=== PATIENT | female | born 1950 | race Caucasian/White ===

== ENCOUNTER 2021-07-04 12:36 | Inpatient (IN) | payer MEDICARE ==
[~2021-07-04] VITALS: Ht 154.9 cm; Wt 99.3 kg
[2021-07-04 14:19] LABS: Influenza A, PCR NEGATIVE (NEGATIVE); Influenza B, PCR NEGATIVE (NEGATIVE); Resp Syncytial Virus, PCR NEGATIVE (NEGATIVE); SARS-Cov-2 (COVID-19) PCR, MMC NEGATIVE (NEGATIVE)
[2021-07-04 14:25] LABS: Albumin, Blood 1.6 g/dL (3.4-5.0); Albumin/Globulin Ratio 0.4 (0.8-1.8); Calcium, Blood 8.2 mg/dL (8.5-10.1); Creatinine, Blood 2.65 mg/dL (0.40-1.00); Globulin, Blood 4.4 g/dL (2.2-4.0); Potassium, Blood 5.2 mmol/L (3.5-5.5)
[2021-07-04 14:30] LABS: Hematocrit 32.4 % (33.0-51.0); Hemoglobin 9.8 g/dL (11.5-16.0); Mean Corpuscular HGB 28.9 pg (26.0-34.0); Mean Corpuscular HGB Conc 30.2 g/dL (31.5-36.5); Mean Corpuscular Volume 96 fL (80-100); Mean Platelet Volume 11.8 fL (9.1-12.4); Platelet Count 255 K/mm3 (150-400); RDW Coefficient Variation 16.4 % (11.7-14.2); RDW Standard Deviation 57.7 fL (35.1-46.3); Red Blood Cell Count 3.39 M/mm3 (3.80-5.20); White Blood Cell Count 42.74 K/mm3 (4.00-11.30)
[2021-07-04 14:37] LABS: BAND PERCENT MAN 40 % (0-8); BASOPHILS PERCENT MAN 0 % (0-2); EOSINOPHILS PERCENT MAN 0 % (0-6); LYMPHOCYTES ABSOLUTE MAN 0.42 K/mm3 (0.84-5.20); LYMPHOCYTES PERCENT MAN 1 % (21-46); METAMYELOCYTE ABSOLUTE MAN 1.28 K/mm3 (0.00-0.00); METAMYELOCYTE PERCENT MAN 3 % (0-0); MONOCYTES ABSOLUTE MAN 0.85 K/mm3 (0.16-1.47); MONOCYTES PERCENT MAN 2 % (4-13); NEUTROPHILS ABSOLUTE MAN 40.17 K/mm3 (1.96-9.15); SEG NEUTROPHILS PERCENT MAN 54 % (41-73); TOTAL CELLS COUNTED 100
[2021-07-04 17:52] LABS: Appearance, Urine Cloudy (Clear); Blood, Urine 5+ (Neg); Color, Urine Amber (P-Yellow); Glucose Qualitative, Urine Neg (Neg); Ketones, Urine 1+ (Neg); Leukocyte Esterase, Urine 3+ (Neg); Nitrite, Urine Pos (Neg); Protein, Urine 3+ (Neg); Specific Gravity, Urine 1.025 (1.003-1.022); Urobilinogen, Urine 1+ (Normal)
[2021-07-04 18:01] LABS: Bilirubin, Urine 2+ (Neg)
[2021-07-04 18:04] LABS: Amorphous Heavy (0-Heavy); Bacteria Many /hpf; Mucus Light (0-Heavy); Red Blood Cells, Urine 25-50 /hpf (0-2); Squamous Epithelial Cells Few /hpf (Few)
[2021-07-04 18:57] LABS: C DIFFICILE DNA Negative (Negative)
[2021-07-04 21:33] LABS: Campylobacter Sp Not Detected (NOT DETECT)
[2021-07-04 21:34] LABS: Adenovirus F 40/41 Not Detected (NOT DETECT); Astrovirus Not Detected (NOT DETECT); Cryptosporidium Not Detected (NOT DETECT); Cyclospora Cayetanensis Not Detected (NOT DETECT); E. Coli O157 Not Detected (NOT DETECT); Entamoeba Histolytica Not Detected (NOT DETECT); Enteroaggregative E. coli-EAEC Not Detected (NOT DETECT); Enteropathogenic E. coli-EPEC Not Detected (NOT DETECT); Enterotoxigenic E. coli-ETEC Not Detected (NOT DETECT); Giardia Lamblia Not Detected (NOT DETECT); Norovirus GI/GII Not Detected (NOT DETECT); Plesiomonas Shigelloides Not Detected (NOT DETECT); Rotavirus A Not Detected (NOT DETECT); Salmonella Sp Not Detected (NOT DETECT); Sapovirus Not Detected (NOT DETECT); Shiga Toxin-prod E. coli-STEC Not Detected (NOT DETECT); Shigella/Enteroin E. coli-EIEC Not Detected (NOT DETECT); Vibrio Cholerae Not Detected (NOT DETECT); Vibrio Sp Not Detected (NOT DETECT); Yersinia Enterocolitica Not Detected (NOT DETECT)
[2021-07-04] MEDS ORDERED: GLIP5 PO (21:46)
[2021-07-04] MEDS ORDERED: LOSA50 PO (21:46)
[2021-07-04] MEDS ORDERED: HYDCHL25 PO (21:47)
[2021-07-04] MEDS ORDERED: ATOR40TA PO (21:48)
[2021-07-04] MEDS ORDERED: METO50ER PO (21:49)
[2021-07-04] MEDS ORDERED: PRED1 PO (21:51)
[2021-07-04] MEDS ORDERED: MYCOPHENOLATE PO (21:56)
[2021-07-04] MEDS ORDERED: SITA25T2 PO (21:56)
[2021-07-04] MEDS ORDERED: MYCOPHENOLATE500 M2 PO (21:57)
[2021-07-04] MEDS ORDERED: TACROLIMUS PO (21:59)
--- NOTE | 2021-07-05 02:24 | NUR ---
RECIEVED REPORT FROM SABINE ORTEGA RN, AT 2132; PATIENT ARRIVED TO ROOM 312 @ 2200 BY STRETCHER. PATIENT TRANSFERED SELF WITH ONE PERSON ASSIST TO HOSPITAL BED. VITALS STABLE. ADMIT ASSESSMENT, H&P AND MED REC COMPLETED WITH ASSISTANCE OF PATIENT. PATIENT WITH MINIMAL APPETITE. JUST READY FOR SLEEP.
--- NOTE | 2021-07-05 04:50 | NUR ---
PATIENT HAD AND UNEVENTFUL NIGHT. ONLY C/O PAIN WAS THE H/A SHE WAS EXPERIENCING WHICH SEEMS TO HAVE RESOLVED AFTER RECIEVING HER SECOND DOSE OF APAP TONIGHT. SHE CONTINUES TO FEEL WEAK BUT IS SLOWLY STARTING TO FEEL BETTER. SHE HAS ONLY HAD 2 BMs SINCE ADMITTING TO THE FLOOR, WHICH APPARENTLY IS A GOOD IMPROVEMENT FROM THE FREQUENCY DOWN IN THE ER. THE PATIENT IS PLEASANT AND COOPERATIVE WITH STAFF, SHE CALLS APPROPRIATELY FOR STAFF ASSIST NEEDED. CALL LIGHT WITHIN REACH.
[2021-07-05 05:43] LABS: Hematocrit 27.7 % (33.0-51.0); Hemoglobin 8.6 g/dL (11.5-16.0); Mean Corpuscular HGB 28.7 pg (26.0-34.0); Mean Corpuscular Volume 92 fL (80-100); Mean Platelet Volume 11.5 fL (9.1-12.4); Platelet Count 240 K/mm3 (150-400); RDW Coefficient Variation 16.4 % (11.7-14.2); RDW Standard Deviation 55.2 fL (35.1-46.3); White Blood Cell Count 36.68 K/mm3 (4.00-11.30)
[2021-07-05 06:30] LABS: BAND PERCENT MAN 28 % (0-8); BASOPHILS PERCENT MAN 0 % (0-2); EOSINOPHILS PERCENT MAN 0 % (0-6); MONOCYTES ABSOLUTE MAN 0.73 K/mm3 (0.16-1.47); MONOCYTES PERCENT MAN 2 % (4-13); NEUTROPHILS ABSOLUTE MAN 35.94 K/mm3 (1.96-9.15); SEG NEUTROPHILS PERCENT MAN 70 % (41-73); TOTAL CELLS COUNTED 100
[2021-07-05 06:46] LABS: Albumin, Blood 2.1 g/dL (3.4-5.0); Anion Gap 15 mmol/L (6-16); Blood Urea Nitrogen 65 mg/dL (8-24); Bun/Creatinine Ratio 22.6 (12.0-20.0); CO2, Blood 17 mmol/L (21-32); Calcium, Blood 8.6 mg/dL (8.5-10.1); Chloride, Blood 102 mmol/L (98-108); Creatinine, Blood 2.87 mg/dL (0.40-1.00); Glomerular Filtration Rate 16 (60-); Glucose, Blood 178 mg/dL (70-99); Phosphorus, Blood 5.6 mg/dL (2.5-4.9); Potassium, Blood 3.7 mmol/L (3.5-5.5); Sodium, Blood 134 mmol/L (136-145)
--- NOTE | 2021-07-05 17:22 | NUR ---
SUMMARY PT SITTING UP IN BED VISITING WITH FAMILY, PT HAS BEEN PLEASANT AND COOPERATIVE WITH CARE, UP WITH STANDBY ASSIST, PT STILL WITH SMALL AMOUNTS OF DIARRHEA, SMALL AMOUNTS OF URINE ALSO, BLADDER SCAN NOT SHOWING URINE RETENTION, PT DENIES ANY PAIN OR SOB, VSS, WILL CONT TO MONITOR
[2021-07-06 04:58] LABS: Hematocrit 27.8 % (33.0-51.0); Hemoglobin 8.8 g/dL (11.5-16.0); Mean Corpuscular HGB 28.6 pg (26.0-34.0); Mean Corpuscular HGB Conc 31.7 g/dL (31.5-36.5); Mean Corpuscular Volume 90 fL (80-100); Mean Platelet Volume 11.5 fL (9.1-12.4); Platelet Count 209 K/mm3 (150-400); RDW Coefficient Variation 16.1 % (11.7-14.2); RDW Standard Deviation 53.4 fL (35.1-46.3); Red Blood Cell Count 3.08 M/mm3 (3.80-5.20)
[2021-07-06 05:46] LABS: BAND PERCENT MAN 16 % (0-8); BASOPHILS PERCENT MAN 0 % (0-2); EOSINOPHILS PERCENT MAN 0 % (0-6); LYMPHOCYTES PERCENT MAN 1 % (21-46); MONOCYTES PERCENT MAN 2 % (4-13); NEUTROPHILS ABSOLUTE MAN 19.49 K/mm3 (1.96-9.15); SEG NEUTROPHILS PERCENT MAN 81 % (41-73); TOTAL CELLS COUNTED 100
[2021-07-06 06:12] LABS: Albumin, Blood 1.8 g/dL (3.4-5.0); Albumin/Globulin Ratio 0.5 (0.8-1.8); Bilirubin, Total 1.1 mg/dL (0.1-1.0); Bun/Creatinine Ratio 29.1 (12.0-20.0); Calcium, Blood 8.4 mg/dL (8.5-10.1); Creatinine, Blood 2.65 mg/dL (0.40-1.00); Globulin, Blood 3.5 g/dL (2.2-4.0); Potassium, Blood 3.2 mmol/L (3.5-5.5); Total Protein, Blood 5.3 g/dL (6.4-8.2)
--- NOTE | 2021-07-06 06:14 | NUR ---
SHIFT SUMMARY JAS: JAS WAS ADMINISTERED HER MEDS AT 2100, FELT A LITTLE BIT ANXIOUS AROUND 1AM, SHE SAID THAT SHE FELT HOT AND COULD NOT BREATHE BUT HER VITALS WERE GOOD AND SHE WAS NSR PER TELE REPORT. AT 4AM SHE WAS HYPOTENSIVE, DR. WEINER WAS ALERTED AND A 250 NS BOLUS WAS ADMINISTERED HER SYSTOLIC BP WENT UP FROM 74 TO 95. CONTINUE TO MONITOR
--- NOTE | 2021-07-06 17:43 | NUR ---
SUMMARY PT SITTING UP AT THE EDGE OF THE BED EATING DINNER, PT HAS BEEN PLEASANT AND COOPERATIVE WITH CARE, UP WITH MIN ASSIST, PT VOIDS SMALL AMOUNT, BLADDER SCAN SHOWS LITTLE TO NO RESIDUALS, FAMILY HAS BEEN IN TO VISIT, VSS, NO COMPLAINTS, WILL CONT TO MONITOR
[2021-07-07 05:19] LABS: Bun/Creatinine Ratio 38.8 (12.0-20.0); Calcium, Blood 8.9 mg/dL (8.5-10.1); Creatinine, Blood 2.01 mg/dL (0.40-1.00); Magnesium, Blood 2.2 mg/dL (1.6-2.4)
--- NOTE | 2021-07-07 05:24 | NUR ---
SHIFT SUMMARY JAS: JAS REMAINED STABLE ALL NIGHT. HER LABS ARE PENDING. SHE WAS BLADDER SCAN ONE JOUR AFTER VOIDING 600ML. HER BLADDER WAS EMPTY. SHE IS PLEASANT COOPERATIVE. SLEPT GOOD
[2021-07-07 05:28] LABS: Hematocrit 26.9 % (33.0-51.0); Hemoglobin 8.3 g/dL (11.5-16.0); Mean Corpuscular HGB 28.1 pg (26.0-34.0); Mean Corpuscular HGB Conc 30.9 g/dL (31.5-36.5); Mean Corpuscular Volume 91 fL (80-100); Mean Platelet Volume 11.6 fL (9.1-12.4); Platelet Count 161 K/mm3 (150-400); RDW Coefficient Variation 16.5 % (11.7-14.2); RDW Standard Deviation 55.3 fL (35.1-46.3); Red Blood Cell Count 2.95 M/mm3 (3.80-5.20); White Blood Cell Count 17.68 K/mm3 (4.00-11.30)
[2021-07-07 06:27] LABS: BAND PERCENT MAN 8 % (0-8); BASOPHILS PERCENT MAN 0 % (0-2); EOSINOPHILS PERCENT MAN 0 % (0-6); LYMPHOCYTES ABSOLUTE MAN 0.17 K/mm3 (0.84-5.20); LYMPHOCYTES PERCENT MAN 1 % (21-46); MONOCYTES ABSOLUTE MAN 0.88 K/mm3 (0.16-1.47); MONOCYTES PERCENT MAN 5 % (4-13); NEUTROPHILS ABSOLUTE MAN 16.61 K/mm3 (1.96-9.15); SEG NEUTROPHILS PERCENT MAN 86 % (41-73); TOTAL CELLS COUNTED 100
--- NOTE | 2021-07-07 17:10 | NUR ---
SHIFT SUMMARY PATIENT IS A/O X4, PLEASANT AND COOPERATIVE WITH CARE. PATIENT IS 1 PERSON SBA TO THE BSC/RECLINER. ON RA. LACTATED RINGER'S RUNNING AT 100MLS/HR. ABX GIVEN TWICE THIS SHIFT. PATIENT HAS NOT HAD MUCH OF AN APPETITE THIS SHIFT. SPECIAL TRAY ORDERED FOR THEM THIS EVENING. COVERAGE TWICE THIS SHIFT PER SLIDING SCALE INSULIN. ON TELE. CALL LIGHT WITHIN REACH. WILL CONTINUE TO CARE FOR THE PATIENT UNTIL SHIFT REPORT IS GIVEN TO ONCOMING NURSE.
--- NOTE | 2021-07-08 04:49 | NUR ---
SHIFT SUMMARY JAS: JAS CALLED FOR HELP AROUND 2AM BECAUSE SHE FELT SHE COULD NOT BREATHE. UPON ASSESSMENT HER SPO2 WAS IN THE LOW 90'S. 2L NC WERE ADMINISTERED AND IT MADE NO DIFFERENCE. HER LUNGS SOUNDED WEEZY AND CRACKLES COULD BE HEARD AT THE BASES. DR. HIGGINBOTHAM WAS ALERTED. CHEST X-RAY, LASIX AND CPAP WERE ORDERED STAT. SPO2 WERE IN THE UPPER 90'S WITH THE CPAP. WILL CONTINUE TO MONITOR
[2021-07-08 06:21] LABS: Hematocrit 28.5 % (33.0-51.0); Hemoglobin 8.6 g/dL (11.5-16.0); Mean Corpuscular HGB 28.3 pg (26.0-34.0); Mean Corpuscular HGB Conc 30.2 g/dL (31.5-36.5); Mean Corpuscular Volume 94 fL (80-100); Mean Platelet Volume 12.1 fL (9.1-12.4); NRBC ABSOLUTE 0.12 K/mm3 (0.00-0.02); NRBC Auto 1.2 /100 WBC (0.0-0.2); Platelet Count 122 K/mm3 (150-400); RDW Coefficient Variation 16.6 % (11.7-14.2); Red Blood Cell Count 3.04 M/mm3 (3.80-5.20); White Blood Cell Count 10.26 K/mm3 (4.00-11.30)
[2021-07-08 06:46] LABS: Albumin, Blood 1.6 g/dL (3.4-5.0); Anion Gap 15 mmol/L (6-16); Blood Urea Nitrogen 78 mg/dL (8-24); CO2, Blood 18 mmol/L (21-32); Calcium, Blood 8.6 mg/dL (8.5-10.1); Chloride, Blood 104 mmol/L (98-108); Creatinine, Blood 1.66 mg/dL (0.40-1.00); Glomerular Filtration Rate 30 (60-); Glucose, Blood 165 mg/dL (70-99); Magnesium, Blood 1.8 mg/dL (1.6-2.4); Phosphorus, Blood 2.7 mg/dL (2.5-4.9); Sodium, Blood 137 mmol/L (136-145)
[2021-07-08 06:48] LABS: BAND PERCENT MAN 3 % (0-8); BASOPHILS PERCENT MAN 0 % (0-2); EOSINOPHILS PERCENT MAN 0 % (0-6); LYMPHOCYTES PERCENT MAN 2 % (21-46); MONOCYTES PERCENT MAN 1 % (4-13); NEUTROPHILS ABSOLUTE MAN 9.95 K/mm3 (1.96-9.15); SEG NEUTROPHILS PERCENT MAN 94 % (41-73); TOTAL CELLS COUNTED 100
[2021-07-08 15:50] LABS: Albumin, Blood 1.6 g/dL (3.4-5.0); Anion Gap 12 mmol/L (6-16); Blood Urea Nitrogen 81 mg/dL (8-24); Bun/Creatinine Ratio 42.4 (12.0-20.0); CO2, Blood 18 mmol/L (21-32); Calcium, Blood 8.5 mg/dL (8.5-10.1); Chloride, Blood 104 mmol/L (98-108); Creatinine, Blood 1.91 mg/dL (0.40-1.00); Glomerular Filtration Rate 26 (60-); Glucose, Blood 198 mg/dL (70-99); Potassium, Blood 4.4 mmol/L (3.5-5.5); Sodium, Blood 134 mmol/L (136-145)
--- NOTE | 2021-07-08 18:05 | NUR ---
SHIFT SUMMARY PT AxOx4, BUT REPORTS FEELING WORSE TODAY WITH SOB. RESP THERAPY IN FOR BREATHING TX. PT HAD REPEAT CXR, DIURETICS, ABX, AND ECHO PER ORDERS. PT HAD SOFT BP T/O THIS SHIFT. BP MEDS HELD THIS AM. FAMILY CALLED AND IN FOR VISIT- GIVEN UPDATES. PER LIVESTOCK AGENT, NRS WITH PVC IN 100'S. PT ON 5L O2 VIA NC WITH SAT'S IN MID-HIGH 90'S. 1 ASSIST TO BSC FOR GENERAL WEAKNESS. PT TALKING MORE THIS EVENING AND CURRENTLY SITTING UP IN BED EATING DINNER. CALL LIGHT IN REACH. DENIES ANY NEEDS AT THIS TIME.
[2021-07-09 02:20] LABS: Hematocrit 22.7 % (33.0-51.0); Hemoglobin 7.1 g/dL (11.5-16.0); Mean Corpuscular HGB 28.3 pg (26.0-34.0); Mean Corpuscular HGB Conc 31.3 g/dL (31.5-36.5); Mean Corpuscular Volume 90 fL (80-100); Mean Platelet Volume 12.7 fL (9.1-12.4); NRBC ABSOLUTE 0.03 K/mm3 (0.00-0.02); NRBC Auto 0.1 /100 WBC (0.0-0.2); Platelet Count 122 K/mm3 (150-400); RDW Coefficient Variation 16.7 % (11.7-14.2); RDW Standard Deviation 54.8 fL (35.1-46.3); Red Blood Cell Count 2.51 M/mm3 (3.80-5.20); White Blood Cell Count 26.56 K/mm3 (4.00-11.30)
[2021-07-09 02:43] LABS: Albumin, Blood 1.5 g/dL (3.4-5.0); Anion Gap 13 mmol/L (6-16); Blood Urea Nitrogen 87 mg/dL (8-24); Bun/Creatinine Ratio 45.3 (12.0-20.0); CO2, Blood 20 mmol/L (21-32); Calcium, Blood 8.7 mg/dL (8.5-10.1); Chloride, Blood 103 mmol/L (98-108); Creatinine, Blood 1.92 mg/dL (0.40-1.00); Glomerular Filtration Rate 26 (60-); Glucose, Blood 234 mg/dL (70-99); Phosphorus, Blood 3.6 mg/dL (2.5-4.9); Sodium, Blood 136 mmol/L (136-145)
[2021-07-09 03:06] LABS: BAND PERCENT MAN 12 % (0-8); BASOPHILS PERCENT MAN 0 % (0-2); EOSINOPHILS PERCENT MAN 0 % (0-6); LYMPHOCYTES ABSOLUTE MAN 0.79 K/mm3 (0.84-5.20); LYMPHOCYTES PERCENT MAN 3 % (21-46); MONOCYTES ABSOLUTE MAN 0.79 K/mm3 (0.16-1.47); MONOCYTES PERCENT MAN 3 % (4-13); NEUTROPHILS ABSOLUTE MAN 24.96 K/mm3 (1.96-9.15); SEG NEUTROPHILS PERCENT MAN 82 % (41-73); TOTAL CELLS COUNTED 100
--- NOTE | 2021-07-09 06:19 | NUR ---
SHIFT SUMMARY AOX4-SELF, DATE, SITUATION, PLACE. ANSWERS QUESTIONS APPROPRIATE. SLOW TO RESPOND. FOLLOWS DIRECTIONS. VSS. TELE NSR c PVC @83. DENIES PAIN, SOB OR N/V. SPO2 @100% T/O NIGHT, ABLE TO TITRATE O2 DOWN TO 2L. LS DIM c CRACKLES IN BASES. GETS DYSPNIC c ACTIVITY. URINE IS WIN c FOUL ODOR, PT DENIES DISCOMFORT c URINATION. CALL LIGHT & BED ALARM IN PLACE. WCTM.
[2021-07-09 12:43] LABS: Albumin, Blood 1.6 g/dL (3.4-5.0); Anion Gap 13 mmol/L (6-16); Blood Urea Nitrogen 91 mg/dL (8-24); Bun/Creatinine Ratio 48.1 (12.0-20.0); CO2, Blood 21 mmol/L (21-32); Calcium, Blood 9.2 mg/dL (8.5-10.1); Chloride, Blood 102 mmol/L (98-108); Creatinine, Blood 1.89 mg/dL (0.40-1.00); Glomerular Filtration Rate 26 (60-); Glucose, Blood 285 mg/dL (70-99); Phosphorus, Blood 3.2 mg/dL (2.5-4.9); Potassium, Blood 3.7 mmol/L (3.5-5.5); Sodium, Blood 136 mmol/L (136-145)
[2021-07-09] MEDS ORDERED: PLAVIX75 MG PO (16:09)
[2021-07-09 17:12] LABS: BASOPHILS ABSOLUTE AUTO 0.07 K/mm3 (0.00-0.23); BASOPHILS PERCENT AUTO 0 % (0-2); EOSINOPHILS ABSOLUTE AUTO 0.08 K/mm3 (0.00-0.68); EOSINOPHILS PERCENT AUTO 0 % (0-6); Hematocrit 24.6 % (33.0-51.0); Hemoglobin 7.9 g/dL (11.5-16.0); IMMATURE GRAN ABSOLUTE AUTO 0.56 K/mm3 (0.00-0.10); IMMATURE GRAN PERCENT AUTO 3 % (0-1); LYMPHOCYTES PERCENT AUTO 3 % (21-46); MONOCYTES ABSOLUTE AUTO 0.75 K/mm3 (0.16-1.47); MONOCYTES PERCENT AUTO 3 % (4-13); Mean Corpuscular HGB 28.7 pg (26.0-34.0); Mean Corpuscular HGB Conc 32.1 g/dL (31.5-36.5); Mean Corpuscular Volume 90 fL (80-100); Mean Platelet Volume 12.6 fL (9.1-12.4); NEUTROPHILS ABSOLUTE AUTO 20.63 K/mm3 (1.96-9.15); NEUTROPHILS PERCENT AUTO 91 % (41-73); NRBC ABSOLUTE 0.02 K/mm3 (0.00-0.02); NRBC Auto 0.1 /100 WBC (0.0-0.2); Platelet Count 144 K/mm3 (150-400); RDW Coefficient Variation 16.9 % (11.7-14.2); RDW Standard Deviation 55.3 fL (35.1-46.3); Red Blood Cell Count 2.75 M/mm3 (3.80-5.20); White Blood Cell Count 22.69 K/mm3 (4.00-11.30)
--- NOTE | 2021-07-09 18:37 | NUR ---
SHIFT SUMMARY PATIENT IS ALERT AND ORIENTED X4, PLEASANT AND COOPERATIVE WITH CARE. PATIENT RECEIVED A ONE TIME DOSE OF INSULIN VIA MEDIUM SLIDING SCALE FOR CORRECTION OF 367. DOC NOTIFIED. PATIENT HAS LITTLE APPETITE. PATIENT DID HAVE SOME BROTH AND ENSURE THIS SHIFT. PATIENT IS ON RA SATTING ABOVE 90% PATIENT DID RECEIVE BREATHING TREATMENTS THIS SHIFT. CT DONE THIS SHIFT. PATIENT IS CURRENTLY IN BED. VSS. BED IN LOWEST POSITION. CALL LIGHT WITHIN REACH.
--- NOTE | 2021-07-10 03:14 | NUR ---
SHIFT SUMMARY A&0X3-4, RA, LUNGS WITH BILATERAL LOWER LOBE CRACKELS AND BILATERAL EXP WHEEZES. NO DYSPNEA NOTED. PATIENT ABLE TO TRANSFER TO BSC INDEPENDENTLY (SBA FOR SAFETY). BLADDER SCAN REAVEALED NO PVR. URINIARY FREQUENCY DENIES PAIN/BURNING WITH URINATION. COOCYX WOUND COVERED WITH MEPILEX CDI. POSITIVE BLOOD CULTURES GRAM NEGATIVE BACILLI, NOTIFIED. NO NEW ORDERS.
[2021-07-10 05:31] LABS: BASOPHILS ABSOLUTE AUTO 0.04 K/mm3 (0.00-0.23); BASOPHILS PERCENT AUTO 0 % (0-2); EOSINOPHILS ABSOLUTE AUTO 0.21 K/mm3 (0.00-0.68); EOSINOPHILS PERCENT AUTO 1 % (0-6); Hematocrit 23.8 % (33.0-51.0); Hemoglobin 7.5 g/dL (11.5-16.0); IMMATURE GRAN ABSOLUTE AUTO 0.46 K/mm3 (0.00-0.10); IMMATURE GRAN PERCENT AUTO 2 % (0-1); LYMPHOCYTES ABSOLUTE AUTO 0.88 K/mm3 (0.84-5.20); LYMPHOCYTES PERCENT AUTO 4 % (21-46); MONOCYTES PERCENT AUTO 5 % (4-13); Mean Corpuscular HGB 28.1 pg (26.0-34.0); Mean Corpuscular HGB Conc 31.5 g/dL (31.5-36.5); Mean Corpuscular Volume 89 fL (80-100); Mean Platelet Volume 12.6 fL (9.1-12.4); NEUTROPHILS ABSOLUTE AUTO 19.03 K/mm3 (1.96-9.15); NEUTROPHILS PERCENT AUTO 88 % (41-73); Platelet Count 150 K/mm3 (150-400); RDW Coefficient Variation 16.9 % (11.7-14.2); RDW Standard Deviation 54.7 fL (35.1-46.3); Red Blood Cell Count 2.67 M/mm3 (3.80-5.20); White Blood Cell Count 21.62 K/mm3 (4.00-11.30)
[2021-07-10 06:46] LABS: Albumin, Blood 1.6 g/dL (3.4-5.0); Anion Gap 12 mmol/L (6-16); Blood Urea Nitrogen 91 mg/dL (8-24); Bun/Creatinine Ratio 48.1 (12.0-20.0); CO2, Blood 23 mmol/L (21-32); Calcium, Blood 9.1 mg/dL (8.5-10.1); Chloride, Blood 101 mmol/L (98-108); Creatinine, Blood 1.89 mg/dL (0.40-1.00); Glomerular Filtration Rate 26 (60-); Glucose, Blood 337 mg/dL (70-99); Magnesium, Blood 2.1 mg/dL (1.6-2.4); Phosphorus, Blood 3.4 mg/dL (2.5-4.9); Sodium, Blood 136 mmol/L (136-145)
--- NOTE | 2021-07-10 18:42 | NUR ---
SHIFT SUMMARY PATIENT IS ALERT AND ORIENTED, PLEASANT AND COOPERATIVE WITH CARE. PATIENT HAS BEEN TRYING TO EAT MORE THIS SHIFT. THE PATIENT SPOKE WITH THE CIRCUS AGENT TODAY. COVERAGE PER SLIDING SCALE GIVEN WITH MEALS THIS SHIFT. PATIENT'S SON WOULD LIKE TO BE UPDATED WITH CARE TOMORROW 07/11/21. PATIENT HAS PRN TESSALON ORDERED. COUGH HAS IMPROVED. VSS. PATIENT IS UP IN RECLINER. WILL CONTINUE TO CARE FOR THE PATIENT UNTIL SHIFT REPORT IS GIVEN TO ONCOMING NURSE.
--- NOTE | 2021-07-11 06:39 | NUR ---
SHIFT SUMMARY: A&OX3, SAT > 92% ON RA, EXP WHEEZES AND SLIGHT COARSENESS TO BASES BILATERALLY. WET NONPRODCUTIVE COUGH. ENCOURAGED COUGH AND DEEP BREATHE. TELE =NSR. AMBULATES FROM BED, TO CHAIR, TO BSC INDEPENDENTLY SBA FOR SAFETY. PATIENT SEEMS WEAKER THAN PREVIOUS SHIFT. +1 EDEMA TO BLE. PATIENT DID NOT SLEEP WELL MOVED FROM BED TO CHAIR EVERY FEW HOURS.
[2021-07-11 09:18] LABS: BASOPHILS ABSOLUTE AUTO 0.03 K/mm3 (0.00-0.23); BASOPHILS PERCENT AUTO 0 % (0-2); EOSINOPHILS ABSOLUTE AUTO 0.18 K/mm3 (0.00-0.68); EOSINOPHILS PERCENT AUTO 1 % (0-6); Hematocrit 23.7 % (33.0-51.0); Hemoglobin 7.3 g/dL (11.5-16.0); IMMATURE GRAN ABSOLUTE AUTO 0.27 K/mm3 (0.00-0.10); IMMATURE GRAN PERCENT AUTO 2 % (0-1); LYMPHOCYTES ABSOLUTE AUTO 1.01 K/mm3 (0.84-5.20); LYMPHOCYTES PERCENT AUTO 6 % (21-46); MONOCYTES ABSOLUTE AUTO 0.97 K/mm3 (0.16-1.47); MONOCYTES PERCENT AUTO 6 % (4-13); Mean Corpuscular HGB 27.9 pg (26.0-34.0); Mean Corpuscular HGB Conc 30.8 g/dL (31.5-36.5); Mean Corpuscular Volume 91 fL (80-100); Mean Platelet Volume 12.3 fL (9.1-12.4); NEUTROPHILS ABSOLUTE AUTO 14.51 K/mm3 (1.96-9.15); NEUTROPHILS PERCENT AUTO 85 % (41-73); NRBC ABSOLUTE 0.02 K/mm3 (0.00-0.02); NRBC Auto 0.1 /100 WBC (0.0-0.2); Platelet Count 177 K/mm3 (150-400); RDW Coefficient Variation 17.1 % (11.7-14.2); RDW Standard Deviation 55.4 fL (35.1-46.3); Red Blood Cell Count 2.62 M/mm3 (3.80-5.20); White Blood Cell Count 16.97 K/mm3 (4.00-11.30)
[2021-07-11 09:43] LABS: Albumin, Blood 1.7 g/dL (3.4-5.0); Anion Gap 10 mmol/L (6-16); Blood Urea Nitrogen 82 mg/dL (8-24); Bun/Creatinine Ratio 44.8 (12.0-20.0); CO2, Blood 24 mmol/L (21-32); Chloride, Blood 103 mmol/L (98-108); Creatinine, Blood 1.83 mg/dL (0.40-1.00); Glomerular Filtration Rate 27 (60-); Glucose, Blood 274 mg/dL (70-99); Phosphorus, Blood 3.4 mg/dL (2.5-4.9); Potassium, Blood 4.4 mmol/L (3.5-5.5); Sodium, Blood 137 mmol/L (136-145)
--- NOTE | 2021-07-11 18:37 | NUR ---
PT AAOX4 ABLE TO MAKE NEEDS KNOWN. COMPLIANT WITH MEDICATION REGIMEN. NO DISTRESS NOTED, NO CPMPLAINTS VOICED. CONTINUES ON IV ABT, NO ADVERSE REACTION NOTED. BED IN LOWEST POSITION. CALL LIGHT IN REACH
--- NOTE | 2021-07-12 04:43 | NUR ---
SHIFT SUMMARY: A&OX4. TELE = NSR. RA, RLL CRACKELS, FRANCO, WET COUGH. INCREASING EDEMA BLE AND PEDAL. PATIENT COMPLAINING OF INCREASED PRESSURE AND PAIN TO FEET. DIFFICULTY AMBULATING TONIGHT. WOUND TO CCOCYX DRESISNG CDI.
[2021-07-12 05:10] LABS: BASOPHILS ABSOLUTE AUTO 0.04 K/mm3 (0.00-0.23); BASOPHILS PERCENT AUTO 0 % (0-2); EOSINOPHILS ABSOLUTE AUTO 0.12 K/mm3 (0.00-0.68); EOSINOPHILS PERCENT AUTO 1 % (0-6); Hematocrit 28.1 % (33.0-51.0); Hemoglobin 8.5 g/dL (11.5-16.0); IMMATURE GRAN ABSOLUTE AUTO 0.21 K/mm3 (0.00-0.10); IMMATURE GRAN PERCENT AUTO 2 % (0-1); LYMPHOCYTES ABSOLUTE AUTO 0.81 K/mm3 (0.84-5.20); LYMPHOCYTES PERCENT AUTO 6 % (21-46); MONOCYTES ABSOLUTE AUTO 0.21 K/mm3 (0.16-1.47); MONOCYTES PERCENT AUTO 2 % (4-13); Mean Corpuscular HGB 28.2 pg (26.0-34.0); Mean Corpuscular HGB Conc 30.2 g/dL (31.5-36.5); Mean Corpuscular Volume 93 fL (80-100); Mean Platelet Volume 12.6 fL (9.1-12.4); NEUTROPHILS ABSOLUTE AUTO 12.02 K/mm3 (1.96-9.15); NEUTROPHILS PERCENT AUTO 90 % (41-73); NRBC ABSOLUTE 0.05 K/mm3 (0.00-0.02); NRBC Auto 0.4 /100 WBC (0.0-0.2); Platelet Count 224 K/mm3 (150-400); RDW Coefficient Variation 17.3 % (11.7-14.2); RDW Standard Deviation 57.8 fL (35.1-46.3); Red Blood Cell Count 3.01 M/mm3 (3.80-5.20); White Blood Cell Count 13.41 K/mm3 (4.00-11.30)
[2021-07-12 05:44] LABS: BAND PERCENT MAN 4 % (0-8); BASOPHILS PERCENT MAN 0 % (0-2); EOSINOPHILS PERCENT MAN 0 % (0-6); LYMPHOCYTES PERCENT MAN 6 % (21-46); MONOCYTES ABSOLUTE MAN 0.13 K/mm3 (0.16-1.47); MONOCYTES PERCENT MAN 1 % (4-13); NEUTROPHILS ABSOLUTE MAN 12.47 K/mm3 (1.96-9.15); SEG NEUTROPHILS PERCENT MAN 89 % (41-73); TOTAL CELLS COUNTED 100
[2021-07-12 06:43] LABS: Anion Gap 14 mmol/L (6-16); Blood Urea Nitrogen 76 mg/dL (8-24); Bun/Creatinine Ratio 46.9 (12.0-20.0); CO2, Blood 20 mmol/L (21-32); Calcium, Blood 9.4 mg/dL (8.5-10.1); Chloride, Blood 102 mmol/L (98-108); Creatinine, Blood 1.62 mg/dL (0.40-1.00); Glomerular Filtration Rate 31 (60-); Glucose, Blood 297 mg/dL (70-99); Phosphorus, Blood 4.6 mg/dL (2.5-4.9); Potassium, Blood 5.2 mmol/L (3.5-5.5); Sodium, Blood 136 mmol/L (136-145)
[2021-07-12 07:10] LABS: MYCOPHENOLIC ACID 0.8 ug/mL (1.0-3.5)
[2021-07-12 11:11] LABS: MYCOPHENOLIC ACID 2.3 ug/mL (1.0-3.5)
--- NOTE | 2021-07-12 18:52 | NUR ---
PT AAOX3 ABLE TO MAKE NEEDS KNOWN. NO DISTRESS NOTED, NO COMPLAINTS VOICED. ENCOURAGE PT TO KEEP BLE ELEVATED TOLERATED. COMPLIANT TO MEDICATION REGIMEN. BEDIN LOWEST POSITION. CALL LIGHT IN REACH.
[2021-07-13 05:13] LABS: Hematocrit 25.2 % (33.0-51.0); Hemoglobin 7.7 g/dL (11.5-16.0); Mean Corpuscular HGB 28.3 pg (26.0-34.0); Mean Corpuscular HGB Conc 30.6 g/dL (31.5-36.5); Mean Corpuscular Volume 93 fL (80-100); Mean Platelet Volume 12.4 fL (9.1-12.4); Platelet Count 277 K/mm3 (150-400); RDW Standard Deviation 56.5 fL (35.1-46.3); Red Blood Cell Count 2.72 M/mm3 (3.80-5.20); White Blood Cell Count 21.39 K/mm3 (4.00-11.30)
--- NOTE | 2021-07-13 05:47 | NUR ---
SHIFT SUMMARY: PATIENT IS A&O X3, CONFUSED TO P[LACE UPON AWAKENING. INC. OF BOWEL X2. GUZMAN IS REMOVED THIS AM PER MD ORDER. URINE IS A DARK WIN. CIWA SCORES WERE 0,0,4 (FOR ANXIETY). LIBRIUM WAS GIVEN X1 WITH GOOD EFFECT.
[2021-07-13 06:38] LABS: Albumin, Blood 1.9 g/dL (3.4-5.0); Anion Gap 12 mmol/L (6-16); Blood Urea Nitrogen 78 mg/dL (8-24); Bun/Creatinine Ratio 43.8 (12.0-20.0); CO2, Blood 21 mmol/L (21-32); Calcium, Blood 9.1 mg/dL (8.5-10.1); Chloride, Blood 104 mmol/L (98-108); Creatinine, Blood 1.78 mg/dL (0.40-1.00); Glomerular Filtration Rate 28 (60-); Glucose, Blood 217 mg/dL (70-99); Phosphorus, Blood 4.5 mg/dL (2.5-4.9); Potassium, Blood 4.8 mmol/L (3.5-5.5); Sodium, Blood 137 mmol/L (136-145)
--- NOTE | 2021-07-13 06:46 | NUR ---
SHIFT SUMMARY:PATIENT DOMITILA&OX4, NO REPORTS OF PAIN, VSS. PATIENT WAS SHIVERING AT HS, NO TEMP. OBSERVED AT THAT TIME BUT DID SPIKE A LOW GRADE TEMP. AT 0430, NOT SHIVERING WITH THE LOW GRADE TEMP. PATIENT REPORTS THIS HAPPENING A COUPLE OF TIMES DURING THIS ILLNESS. PATIENT DID NOT SLEEP WELL. COULD NOT GET COMFORTABLE IN THE BED OR THE CHAIR.
--- NOTE | 2021-07-13 18:00 | NUR ---
PT AAOX3 , ABLE TO MAKE NEEDS KNOWN. PT C/O IRRATION TO TONGUE AND THROAT, NSTATIN ORDERED FIRST DOSE GIVEN. STARTED ON PUREE DIET, PT STATED" THIS IS A LITTLE BETTER FOR ME." CONTINUES ON IV ABT, NO ADVERSE REACTION NOTED. ASSISTED WITH ADL'S NEEDED. BED IN LOWEST POSITION. CALL LIGHT IN REACH.
--- NOTE | 2021-07-14 02:40 | NUR ---
CARDIAC: PATIENT DEVELOPED CRACKLES AND REQUIRED [address] WEN WAS NOTIFIED AND ORDER FOR LASIX 40 ML X1 WAS OBTAINED. PATIENT VOIDED ONLY 100ML, BLADDER SCAN SHOWS 75 ML IN BLADDER. [employer] CALLED TO REPORT A SHRP DROP IN HEART RATE FROM 80'S DOWN TO 40 MULTIPLE TIMES WITHOUT SUSTAINING[address] WEN WAS NOTIFIED OF ABOVE. ORDERS OBTAINED FOR ANOTHER 40 ML OF IV LASIX
[2021-07-14 05:05] LABS: Hematocrit 23.5 % (33.0-51.0); Hemoglobin 7.1 g/dL (11.5-16.0); Mean Corpuscular HGB Conc 30.2 g/dL (31.5-36.5); Mean Corpuscular Volume 93 fL (80-100); Mean Platelet Volume 11.9 fL (9.1-12.4); Platelet Count 307 K/mm3 (150-400); RDW Coefficient Variation 18.4 % (11.7-14.2); RDW Standard Deviation 57.3 fL (35.1-46.3); Red Blood Cell Count 2.54 M/mm3 (3.80-5.20); White Blood Cell Count 10.14 K/mm3 (4.00-11.30)
--- NOTE | 2021-07-14 05:38 | NUR ---
SHIFT SUMMARY: PATIENT REFUSED PRN TRAZADONE LAST NIGHT AND DID REPORT SOME SLEEP. PATIENT CONTINUES TO HAVE DRIPS IN HEART RATE BUT NOW FEWER AND ONLY INTO THE 50'S. PATIENT REAMINS ASYMPTOMATIC BUT IS VERY WEAK WHEN UP TO BS AND FLUSHED. CRACKLES ARE NOW FINE AT THE BASES.
[2021-07-14 06:28] LABS: Bun/Creatinine Ratio 43.8 (12.0-20.0); Calcium, Blood 8.7 mg/dL (8.5-10.1); Creatinine, Blood 1.76 mg/dL (0.40-1.00); Potassium, Blood 4.4 mmol/L (3.5-5.5)
--- NOTE | 2021-07-14 18:12 | NUR ---
PT AAOX4 ABLE TO NANCY NEEDS KNOWN. COMPLIANT TO MEDICATION REGIMEN, TAKE MED WHOLE, NNNO DIFFICULTY SWALLOWING. NCOURAGE PT TO KEEP BLE ELEVATED SWEELING NOTED. PT STATED APPETITE IS BETTER SINCE NYSTATIN STARTED. CONTINUES ON IV ABT NO ADV.REACTION NOTED. NIV ACCES TO IAN, INTACT NO SWELLING OR REDNESS NOTED. BED IN LOWEST POSITION . CALL LIGHT IN REACH
[2021-07-15 05:12] LABS: Hematocrit 23.7 % (33.0-51.0); Hemoglobin 7.1 g/dL (11.5-16.0); Mean Corpuscular HGB 28.4 pg (26.0-34.0); Mean Corpuscular Volume 95 fL (80-100); Mean Platelet Volume 11.9 fL (9.1-12.4); Platelet Count 365 K/mm3 (150-400); RDW Coefficient Variation 18.8 % (11.7-14.2); RDW Standard Deviation 61.2 fL (35.1-46.3)
--- NOTE | 2021-07-15 06:00 | NUR ---
SHIFT SUMMARY: PATIENT SLEPT BETTER TONIGHT. STILL NEEDED TO SPEND SOME OF THE NIGHT IN RECLINNER. FINE CRACKLES OBSERVED. HARD EDEMA OBSERVED IN BLE MAKING STANDING AND AMBULATING VERY PAINFUL. PATIENT REFUSED SCD'S THIS SHIFT. NO BRADICARDIC EPISODES ON TELEMETRY.
[2021-07-15 06:21] LABS: Albumin, Blood 1.7 g/dL (3.4-5.0); Anion Gap 11 mmol/L (6-16); Blood Urea Nitrogen 76 mg/dL (8-24); Bun/Creatinine Ratio 40.9 (12.0-20.0); CO2, Blood 22 mmol/L (21-32); Calcium, Blood 8.6 mg/dL (8.5-10.1); Chloride, Blood 106 mmol/L (98-108); Creatinine, Blood 1.86 mg/dL (0.40-1.00); Glomerular Filtration Rate 27 (60-); Glucose, Blood 229 mg/dL (70-99); Phosphorus, Blood 4.4 mg/dL (2.5-4.9); Potassium, Blood 4.5 mmol/L (3.5-5.5); Sodium, Blood 139 mmol/L (136-145)
[2021-07-15 12:25] LABS: Ferritin, Serum 235 ng/mL (8-252); Iron Serum 25 ug/dL (50-170); Percent Saturation 11.4 % (15.0-50.0); Total Iron Binding Capacity 220 ug/dL (250-450)
--- NOTE | 2021-07-15 18:22 | NUR ---
PT AAOX4 ,ABLE TO MAKE NEEDS KNOWN. COMPLIANT WITH MEDICATION REGIMEN. PT CONTINUES ON IV ABT, NO ADVERSE REACTION NOTED. NO COMPLAINTS OR CONCERN VOICED TODAY. PT'S SON WAS AT BED VISITING VOICED THAT HE HAD NO CONCERNS AT THIS TIME. BED IN LOWEST POSTION. CALL LIGHT IN REACH,PT USE APPROPRIATELY.
[2021-07-16 05:29] LABS: Hematocrit 24.6 % (33.0-51.0); Hemoglobin 7.3 g/dL (11.5-16.0); Mean Corpuscular HGB 28.3 pg (26.0-34.0); Mean Corpuscular HGB Conc 29.7 g/dL (31.5-36.5); Mean Corpuscular Volume 95 fL (80-100); Mean Platelet Volume 11.5 fL (9.1-12.4); Platelet Count 412 K/mm3 (150-400); RDW Standard Deviation 63.7 fL (35.1-46.3); Red Blood Cell Count 2.58 M/mm3 (3.80-5.20); White Blood Cell Count 8.86 K/mm3 (4.00-11.30)
[2021-07-16 05:54] LABS: Calcium, Blood 8.7 mg/dL (8.5-10.1); Creatinine, Blood 1.92 mg/dL (0.40-1.00); Potassium, Blood 4.2 mmol/L (3.5-5.5)
--- NOTE | 2021-07-16 06:15 | NUR ---
SHIFT SUMMARY: PATIENT HAS SLEPT MUCH BETTER THIS SHIFT, MOSTLY IN THE NECLINNER WITH LEGS ELEVATED. TELI REMIANS NSR WITH NO EVENTS. 1 BM THIS SHIFT.
--- NOTE | 2021-07-16 18:00 | NUR ---
PATIENT A/OX4, UP WITH FWW AND 1 ASSIST. DRESSING TO SACRUM CHANGED THIS SHIFT AND PICS TAKEN. VSS, ON 2LO2 TO MAINTAIN SAT >90%. LUNGS WITH CRACKLES IN BASES, WET POULTRY VETERINARIAN COUGH. 3+ EDEMA TO BLE, PAINFUL TO TOUCH. PT/OT WORKING WITH PATIENT. PLAN IS FOR SNF AT D/C.
[2021-07-17 05:22] LABS: Hematocrit 26.1 % (33.0-51.0); Hemoglobin 7.7 g/dL (11.5-16.0)
[2021-07-17 05:28] LABS: Albumin, Blood 1.8 g/dL (3.4-5.0); Anion Gap 9 mmol/L (6-16); Blood Urea Nitrogen 69 mg/dL (8-24); Bun/Creatinine Ratio 37.3 (12.0-20.0); CO2, Blood 24 mmol/L (21-32); Calcium, Blood 9.1 mg/dL (8.5-10.1); Chloride, Blood 108 mmol/L (98-108); Creatinine, Blood 1.85 mg/dL (0.40-1.00); Glomerular Filtration Rate 27 (60-); Glucose, Blood 81 mg/dL (70-99); Magnesium, Blood 2.1 mg/dL (1.6-2.4); Phosphorus, Blood 4.5 mg/dL (2.5-4.9); Potassium, Blood 3.7 mmol/L (3.5-5.5); Sodium, Blood 141 mmol/L (136-145)
--- NOTE | 2021-07-17 05:49 | NUR ---
SHIFT SUMMARY 71 YR F ADMITED ON 07/04/21 FOR ACUTE RENAL FAILURE. SHE HAS A HX OF RENAL TRANSPLANT. PT CURRENTLY HAS EDEMA IN BOTH LOWER EXTREMITIES THAT SHE STATES IS VERY PAINFUL. LUNGS SOUNDS ARE CRACKLY AND SHE HAS A VERY WET SOUNDING COUGH. PT IS WEAK AND TIRED AND IS UNABLE TO AMBULATE AT THIS TIME. DURING THIS SHIFT SHE C/O POSITIONAL SOB AND ASKED TO SIT UP IN THE CHAIR RATHER THAN LAY DOWN IN THE BED.
--- NOTE | 2021-07-17 20:13 | NUR ---
SHIFT SUMMARY: NO ACUTE EVENTS. C/O PAIN IN BLE; TYLENOL GIVEN X 1. [id number] VISITED TODAY, REQUESTED THAT PROVIDER "CALL HER KIDNEY DOCTOR IN [place] AND SEE WHAT KIND OF PAIN MEDICATION SHE CAN HAVE FOR HER NEUROPATHY." UP IN CHAIR FOR MOST OF THIS SHIFT. NEEDS MAX ASSIST TO GET TO BSC, BUT PER THERAPY NOTES, SHE CAN STAND AND TRANSFER. SHE LACKS MOTIVATION TO INCREASE HER MOBILITY, BUT PAIN RELIEF MAY HELP WITH THIS. NO EVENTS ON TELEMETRY, SR 90'S. IV SALINE LOCK IN RA QUITE PAINFUL, HAD BEEN PLACED ON 07/06; REPLACED. VERY POOR APPETITE. CRACKLES IN LLL, WEARING O2 @ 2 L/MIN NC, IS TACHYPNEIC AT TIMES. HAVING LOOSE STOOL WITH URGENCY. CBG THIS MORNING 58; GIVEN 8 OZ. OF APPLE JUICE. REPEAT CBG WAS 81. INSULIN HELD.
--- NOTE | 2021-07-18 00:48 | NUR ---
TELEPHONE ENGINEER REPORTS HR DOWN INTO MID FORTIES AND GOES UP TO 80 FOR A MINUTE AND BACK TO 40'S. ONE EVENT TO 38 AND BACK INTO THE FORTIES. PATIENT RESTING IN CHAIR AND REPORTS HR FORTIES WHILE SLEEP/RESTING AT NIGHT.
--- NOTE | 2021-07-18 04:56 | NUR ---
SHIFT SUMMARY 71 YR F ADMITTED ON 07/04/22 FOR ACUTE RENAL FAILURE. FULL CODE. SHE IS A LIVER TRANSPLANT RECIPIENT FROM 2000. SHE HAS SIGNIFICANT EDEMA IN BLE AND C/O HIGH LEVELS OF PAIN IN THE LOWER EXTREMITIES. CRACKLES IN BOTH LUNGS AND A WET SOUNDING COUGH , ALTHOUGH IT HAS SHOWN IMPROVEMENT SINCE YESTERDAY. NO ACUTE CHANGES DURING THIS SHIFT. PT IS MORE COMFORTABLE SITTING UP IN CHAIR RATHER THAN LYING IN BED SHE STATES IT IS EASIER TO BREATHE.
[2021-07-18 05:54] LABS: Albumin, Blood 1.6 g/dL (3.4-5.0); Anion Gap 12 mmol/L (6-16); Blood Urea Nitrogen 67 mg/dL (8-24); CO2, Blood 19 mmol/L (21-32); Calcium, Blood 8.6 mg/dL (8.5-10.1); Chloride, Blood 109 mmol/L (98-108); Creatinine, Blood 1.72 mg/dL (0.40-1.00); Glomerular Filtration Rate 29 (60-); Glucose, Blood 73 mg/dL (70-99); Phosphorus, Blood 4.7 mg/dL (2.5-4.9); Potassium, Blood 4.8 mmol/L (3.5-5.5); Sodium, Blood 140 mmol/L (136-145)
[2021-07-18 05:58] LABS: Hematocrit 27.9 % (33.0-51.0); Hemoglobin 8.1 g/dL (11.5-16.0)
--- NOTE | 2021-07-18 18:04 | NUR ---
SUMMARY PT SITTING UP IN THE CHAIR AT THE BEDSIDE EATING DINNER, PT'S SON HAS BEEN IN TO VISIT, PT HAS WORKED WITH PT/OT AND HAS BEEN UP TO THE COMMODE SEVERAL TIMES, PT CONT TO HAVE LOOSE STOOL, PT MED PER EMAR FOR C/O PAIN IN HER FEET, PLAN IS TO GO TO SNF SOON, VSS, WILL CONT TO MONITOR
[2021-07-19 05:44] LABS: Albumin, Blood 1.5 g/dL (3.4-5.0); Anion Gap 8 mmol/L (6-16); Blood Urea Nitrogen 63 mg/dL (8-24); Bun/Creatinine Ratio 33.9 (12.0-20.0); CO2, Blood 22 mmol/L (21-32); Calcium, Blood 8.4 mg/dL (8.5-10.1); Chloride, Blood 110 mmol/L (98-108); Creatinine, Blood 1.86 mg/dL (0.40-1.00); Glomerular Filtration Rate 27 (60-); Glucose, Blood 100 mg/dL (70-99); Phosphorus, Blood 5.5 mg/dL (2.5-4.9); Sodium, Blood 140 mmol/L (136-145)
[2021-07-19 05:51] LABS: Hematocrit 25.4 % (33.0-51.0); Hemoglobin 7.5 g/dL (11.5-16.0)
--- NOTE | 2021-07-19 07:04 | NUR ---
SHIFT SUMMARY: PATIENT IS REPORTING BURNING PAIN ON THE TOP OF THE LEFT FOOT. THIS PAIN MAKES IT DIFFICULT TO STAND AND AMBULATE. SCHEDULED TYLENOL AND GABAPENTIN ARE GIVEN PER SEP. PATIENT CONTINUES TO HAVE MULTIPLE LOOSE BM'S THIS SHIFT. GAIT IS VERY SLOW AND BLE ARE VERY WEAK.
--- NOTE | 2021-07-19 17:05 | NUR ---
SUMMARY PT SITTING UP IN THE CHAIR AT THE BEDSIDE, PT HAS BEEN PLEASANT AND COOPERATIVE WITH CARE T/O THE DAY, UP WITH 1-2 P ASSIST, BLE REMAINS EDEMETOUS, PT MED PER EMAR FOR PAIN, PLAN TO DC TO SNF SOON, VSS WILL CONT TO MONITOR
--- NOTE | 2021-07-19 17:17 | NUR ---
Pt. was alert and sitting up in chair. Pt. welcomed my visit which was referred by one of our volunteers as a recycling coordinator was not readily available. Pt. was unsettled about the length of her hospitalization and the pain from neuropathy in her legs/feet. Provided a calming presence, and listened empathetically. Explored her personal experience with karen and belief. Pt. displayed evidence of agreement and empowerment. Pt. verbalized gratitude for the visit. Prayed with pt. I will monitor.
[2021-07-20 05:21] LABS: BASOPHILS ABSOLUTE AUTO 0.02 K/mm3 (0.00-0.23); BASOPHILS PERCENT AUTO 0 % (0-2); EOSINOPHILS ABSOLUTE AUTO 0.11 K/mm3 (0.00-0.68); EOSINOPHILS PERCENT AUTO 1 % (0-6); Hematocrit 26.4 % (33.0-51.0); Hemoglobin 7.8 g/dL (11.5-16.0); IMMATURE GRAN ABSOLUTE AUTO 0.09 K/mm3 (0.00-0.10); IMMATURE GRAN PERCENT AUTO 1 % (0-1); LYMPHOCYTES ABSOLUTE AUTO 1.25 K/mm3 (0.84-5.20); LYMPHOCYTES PERCENT AUTO 13 % (21-46); MONOCYTES ABSOLUTE AUTO 0.94 K/mm3 (0.16-1.47); MONOCYTES PERCENT AUTO 10 % (4-13); Mean Corpuscular HGB 27.7 pg (26.0-34.0); Mean Corpuscular HGB Conc 29.5 g/dL (31.5-36.5); Mean Corpuscular Volume 94 fL (80-100); Mean Platelet Volume 10.6 fL (9.1-12.4); NEUTROPHILS ABSOLUTE AUTO 7.25 K/mm3 (1.96-9.15); NEUTROPHILS PERCENT AUTO 75 % (41-73); Platelet Count 568 K/mm3 (150-400); RDW Coefficient Variation 19.1 % (11.7-14.2); RDW Standard Deviation 63.9 fL (35.1-46.3); Red Blood Cell Count 2.82 M/mm3 (3.80-5.20); White Blood Cell Count 9.66 K/mm3 (4.00-11.30)
[2021-07-20 06:33] LABS: Albumin, Blood 1.5 g/dL (3.4-5.0); Anion Gap 12 mmol/L (6-16); Blood Urea Nitrogen 64 mg/dL (8-24); Bun/Creatinine Ratio 35.8 (12.0-20.0); CO2, Blood 19 mmol/L (21-32); Calcium, Blood 8.8 mg/dL (8.5-10.1); Chloride, Blood 111 mmol/L (98-108); Creatinine, Blood 1.79 mg/dL (0.40-1.00); Glomerular Filtration Rate 28 (60-); Glucose, Blood 75 mg/dL (70-99); Phosphorus, Blood 5.9 mg/dL (2.5-4.9); Potassium, Blood 4.3 mmol/L (3.5-5.5); Sodium, Blood 142 mmol/L (136-145)
--- NOTE | 2021-07-20 10:40 | NUR ---
Pt. was sitting up and on phone. Clarified with pt. whether a web development director had visited yet. I contacted Father Bola by phone and let him know the patient has requested a web development director, but that her condition was stable and did not require an emininent visit. Father Bola was thankful for the information and planned to make a visit. I will alert the welcome desk to his potential arrival.
--- NOTE | 2021-07-20 17:38 | NUR ---
SHIFT SUMMARY PATIENT IS ALERT AND ORIENTED X3. PATIENT HAS BEEN PLEASENT AND COOPERATIVE WITH CARE. PATIENT IS A ONE PERSON ASSIST FROM BED TO CHAIR. PATIENT HAS BEEN IN CHAIR MOST OF DAY. PT MEDICATED PER EMAR. VITAL SIGNS REVIEWED. NO ACUTE EVENTS THIS SHIFT. PATIENT HAS HAD NO COMPLAINTS OF SOB, NAUSEA, VOMITTING OR PAIN THIS SHIFT. BED IN LOCKED AND LOWEST POSITION. CALL LIGHT IN PLACE. WILL MONITOR UNTIL SHIFT CHANGE.
[2021-07-21 04:45] LABS: Hematocrit 26.7 % (33.0-51.0); Hemoglobin 7.7 g/dL (11.5-16.0); Mean Corpuscular HGB 27.8 pg (26.0-34.0); Mean Corpuscular HGB Conc 28.8 g/dL (31.5-36.5); Mean Corpuscular Volume 96 fL (80-100); Mean Platelet Volume 10.2 fL (9.1-12.4); NRBC ABSOLUTE 0.02 K/mm3 (0.00-0.02); NRBC Auto 0.2 /100 WBC (0.0-0.2); Platelet Count 630 K/mm3 (150-400); RDW Standard Deviation 65.9 fL (35.1-46.3); Red Blood Cell Count 2.77 M/mm3 (3.80-5.20); White Blood Cell Count 12.32 K/mm3 (4.00-11.30)
--- NOTE | 2021-07-21 05:19 | NUR ---
SHIFT SUMMARY NOT ACUTE CHANGES TO PT CONDITION DURING THIS SHIFT. PT SLEPT MOST OF THE NIGHT. MEDICATED PER EMAR. PT DID DECLINE SOME OF HER NIGHT TIME MEDICATIONS. CALL LIGHT WITHIN REACH AND WILL CONTINUE TO MONITOR.
[2021-07-21 05:35] LABS: Albumin, Blood 1.5 g/dL (3.4-5.0); Anion Gap 9 mmol/L (6-16); Blood Urea Nitrogen 67 mg/dL (8-24); Bun/Creatinine Ratio 34.2 (12.0-20.0); CO2, Blood 22 mmol/L (21-32); Calcium, Blood 8.5 mg/dL (8.5-10.1); Chloride, Blood 111 mmol/L (98-108); Creatinine, Blood 1.96 mg/dL (0.40-1.00); Glomerular Filtration Rate 25 (60-); Glucose, Blood 120 mg/dL (70-99); Potassium, Blood 4.5 mmol/L (3.5-5.5); Sodium, Blood 142 mmol/L (136-145)
--- NOTE | 2021-07-21 06:36 | NUR ---
PT SAT UP TO USE COMMODE, BECAME SOB AND ELEVATED HR. PT PUT ON 5 L O2 NC AND WENT FROM 86% TO 95% BIOX.
--- NOTE | 2021-07-21 17:22 | NUR ---
HYPOGLYCEMIA: DURING PM CBG TESTING (AT 1614), PT'S CBG WAS 67. ASYMPTOMATIC, AWAKE AND ABLE TO SWALLOW. FOUR OUNCES OF APPLE JUICE GIVEN. RE-CHECK OF CBG AT 1717 WAS 95. NO SHORT ACTING INSULIN GIVEN.
--- NOTE | 2021-07-21 17:45 | NUR ---
SHIFT SUMMARY: NO ACUTE EVENTS. C/O PAIN IN BLE; TAKING SCHEDULED TYLENOL. TACHYPNEIC AT REST, FRANCO. OXYGEN @ 3 L/MIN NC, DECREASED FROM 5 L/MIN OVERNIGHT. UP IN CHAIR MOST OF THE DAY TODAY. BLE SEEM A BIT STRONGER TODAY, 1-2 PERSON ASSIST TO BSC. DIARRHEA HAS DECREASED. NO EVENTS ON TELEMETRY, SR-ST 88-114 DEPENDEING ON ACTIVITY. AWAITING SNF FOR REHAB.
--- NOTE | 2021-07-22 04:38 | NUR ---
SALES VENDOR SUMMARY ADMITTED FOR ACUTE RENAL FAILURE. PT IS FULL CODE. PT LIVES IN [place] AND WAS VISITING HER SON. PLAN FOR DISCHARGE TO SNF FOR SHORT TERM REHAB THEN HOME WITH HER SON UNTIL SHE IS WELL ENOUGH TO GO BACK TO [place]. PT HAS BEEN TACHYPNEIC THROUGHOUT THE SHIFT - PT REPORTS THIS HAS BEEN BASELINE. PULSE OX REMAINS AT 100% ON 3L. SHE HAS DYSPNEA ON EXERTION AND IS TOO WEAK TO STAND LONGER THAN 30 SECONDS. SHE HAS PAIN TO BILATERAL LOWER EXTREMITIES FROM THE KNEES TO HER FEET - MEDICATED WITH SCHEDULED GABAPENTIN. BLE 2+ PITTING EDEMA. SHE HAS A WOUND TO HER COCCYX WITH MEPILEX - C/D/I. NO OTHER CONCERNS.
[2021-07-22 05:48] LABS: Albumin, Blood 1.5 g/dL (3.4-5.0); Anion Gap 10 mmol/L (6-16); Blood Urea Nitrogen 71 mg/dL (8-24); Bun/Creatinine Ratio 28.7 (12.0-20.0); CO2, Blood 20 mmol/L (21-32); Calcium, Blood 8.7 mg/dL (8.5-10.1); Chloride, Blood 110 mmol/L (98-108); Creatinine, Blood 2.47 mg/dL (0.40-1.00); Glomerular Filtration Rate 19 (60-); Glucose, Blood 135 mg/dL (70-99); Phosphorus, Blood 7.3 mg/dL (2.5-4.9); Sodium, Blood 140 mmol/L (136-145)
--- NOTE | 2021-07-22 17:19 | NUR ---
SHIFT SUMMARY: NO ACUTE EVENTS. C/O PAIN IN BLE, NEMO FEET; RECEIVING SCEDULED TYLENOL. WAS UP IN RECLINER ALL DAY, BUT WENT BTB THIS AFTERNOON FOR A NAP. SON VISITED AND BROUGHT HER SOME FOOD FROM HOME. NO EVENTS ON TELEMETRY, SR 80-90'S. BREATH SOUNDS ARE A BIT IMPROVED FROM YESTERDAY. GETTING UP TO BSC WITH 1-2 PERSON ASSIST, GAIT BELT AND FWW. D/C PLAN PENDING.
--- NOTE | 2021-07-23 05:52 | NUR ---
DIRECTOR OF INVESTIGATIONS SUMMARY PT BREATHING MUCH IMPROVED TONIGHT. SHE IS ALSO NO LONGER TACHYCARDIC AND HAS REMAINED IN THE 90S. PT REPORTS IT IS EASIER TO BREATHE WITH THE SCHEDULED BREATHING TXS. PT DENIES PAIN AND REFUSED SCHEDULED TYLENOL. NO OTHER CONCERNS THIS SHIFT.
[2021-07-23 06:12] LABS: Bun/Creatinine Ratio 29.3 (12.0-20.0); Calcium, Blood 8.5 mg/dL (8.5-10.1); Creatinine, Blood 2.59 mg/dL (0.40-1.00)
--- NOTE | 2021-07-23 19:15 | NUR ---
SHIFT SUMMARY PATIENT IS ALERT AND ORIENTED X3, PLEASANT AND COOPERATIVE WITH CARE. THE PATIENT HAS BEEN ON 3LPM THIS SHIFT. RECEIVED SCHEDULED BREATHING TREATMENTS. THE PATIENT IS A 2 PERSON ASSIST TO THE BSC. INSULIN GIVEN FOR COVERAGE TWICE THIS SHIFT. PATIENT IS RESTING IN BED. REPORT GIVEN TO ONCOMING NURSE. NOTHING FURTHER TO REPORT.
[2021-07-24 06:19] LABS: Bun/Creatinine Ratio 28.9 (12.0-20.0); Calcium, Blood 8.7 mg/dL (8.5-10.1); Creatinine, Blood 2.87 mg/dL (0.40-1.00); Potassium, Blood 4.7 mmol/L (3.5-5.5)
--- NOTE | 2021-07-24 06:22 | NUR ---
SHIFT SUMMARY ASSUMED CARE AT 1900. NO ACUTE EVENTS OVERNIGHT. NO COMPLAINTS VOICED. DENIES PAIN. ON 4L O2 VIA NC, O2 SATS >95%. REMAINS ON CARDIAC TELE MONITORING, BOX# [id number], SINUS RHYTHM WITH PACs, HR 80s, VERIFIED WITH VEL EMISSION TECHNICIAN. TURNED AND REPOSITIONED, BLEs ELEVATED TOLERATED. REMAINS WITH PITTING BLE EDEMA. BED IN LOW POSITION WITH THE CALL LIGHT WITHIN EASY REACH. WILL CONTINUE TO MONITOR.
--- NOTE | 2021-07-24 19:42 | NUR ---
SHIFT SUMMARY PT UP TO SIDE OF BED AND CHAIR FOR MEALS. EATING VERY SMALL AMOUNTS OF SOUP AND YOGURT WHICH IS ONLY FOOD BESIDES ENSURE ON TRAYS. APPEARS SOB BUT DENIES WHEN ASKED. DR. HERNANDEZ IN TO SEE PT THIS AFTERNOON. FLUID RESTRICTION STARTED. 1 PERSON ASSIST UP TO BSC USING FWW. O2 AT 2L/M AND HUMIDITY PLACED FOR COMFORT. STATED HER THROAT FELT SCRATCHY BUT VOICE SEEMED STRONGER THIS EVENING COMPARED TO THIS MORNING. VOIDING ONLY APPROX 50ML WHEN ASSISTED TO COMMODE.
--- NOTE | 2021-07-24 20:22 | NUR ---
ASSUMED CARE AT 1900. PT OFF THE FLOOR VIA STRETCHER TO CT LAB (FOR CT ABDOMEN W/O CONTRAST) ACCOMPANIED BY ONE MALE ATTENDANT. 2L O2 VIA NC CONTINUED. VSS. LEFT IN STABLE CONDITION AT 2020.
[2021-07-25 05:11] LABS: BASOPHILS ABSOLUTE AUTO 0.03 K/mm3 (0.00-0.23); BASOPHILS PERCENT AUTO 0 % (0-2); EOSINOPHILS ABSOLUTE AUTO 0.26 K/mm3 (0.00-0.68); EOSINOPHILS PERCENT AUTO 2 % (0-6); Hematocrit 25.3 % (33.0-51.0); Hemoglobin 7.3 g/dL (11.5-16.0); IMMATURE GRAN ABSOLUTE AUTO 0.37 K/mm3 (0.00-0.10); IMMATURE GRAN PERCENT AUTO 3 % (0-1); LYMPHOCYTES ABSOLUTE AUTO 1.05 K/mm3 (0.84-5.20); LYMPHOCYTES PERCENT AUTO 8 % (21-46); MONOCYTES ABSOLUTE AUTO 1.22 K/mm3 (0.16-1.47); MONOCYTES PERCENT AUTO 10 % (4-13); Mean Corpuscular HGB Conc 28.9 g/dL (31.5-36.5); Mean Corpuscular Volume 94 fL (80-100); Mean Platelet Volume 10.4 fL (9.1-12.4); NEUTROPHILS ABSOLUTE AUTO 9.78 K/mm3 (1.96-9.15); NEUTROPHILS PERCENT AUTO 77 % (41-73); NRBC ABSOLUTE 0.09 K/mm3 (0.00-0.02); NRBC Auto 0.7 /100 WBC (0.0-0.2); Platelet Count 444 K/mm3 (150-400); RDW Coefficient Variation 18.8 % (11.7-14.2); RDW Standard Deviation 62.4 fL (35.1-46.3); White Blood Cell Count 12.71 K/mm3 (4.00-11.30)
[2021-07-25 05:45] LABS: Albumin, Blood 1.5 g/dL (3.4-5.0); Anion Gap 8 mmol/L (6-16); Blood Urea Nitrogen 88 mg/dL (8-24); Bun/Creatinine Ratio 32.5 (12.0-20.0); CO2, Blood 23 mmol/L (21-32); Calcium, Blood 8.9 mg/dL (8.5-10.1); Chloride, Blood 106 mmol/L (98-108); Creatinine, Blood 2.71 mg/dL (0.40-1.00); Glomerular Filtration Rate 17 (60-); Glucose, Blood 205 mg/dL (70-99); Magnesium, Blood 2.4 mg/dL (1.6-2.4); Phosphorus, Blood 7.1 mg/dL (2.5-4.9); Potassium, Blood 4.5 mmol/L (3.5-5.5); Sodium, Blood 137 mmol/L (136-145)
--- NOTE | 2021-07-25 06:31 | NUR ---
SHIFT SUMMARY ASSUMED CARE AT 1900. PT REMAINS ON 2L O2 VIA NC WITH HUMIDIFIER. PT VOIDED ABOUT 100ML AT 0430, 24 URINE COLLECTION STARTED, WILL END AT 07/26/21 AT 0430. PITTING EDEMA TO BLEs. MEPILEX TO SACRUM INTACT. SCHEDULED MEDICATIONS ADMINISTERED. NO ACUTE EVENTS OVERNIGHT. BED IN LOW POSITION WITH THE CALL LIGHT WITHIN EASY REACH. BED ALARM ACTIVATED. WILL CONTINUE TO MONITOR.
--- NOTE | 2021-07-25 18:36 | NUR ---
SHIFT SUMMARY: PT SLEPT ALMOST ENTIRE SHIFT. GOT IN TO RECLINER FOR LUNCH, WENT BTB SHORTLY AFTER. CBG < 200. USING O2 @ 2 L/MIN NC, STILL TACHYPNEIC EVEN AT REST, DENIES FEELING SOB. DRESSING ON COCCYX WOUND CHANGED. DAUGHTER IN LAW VISITED THIS AFTERNOON.
--- NOTE | 2021-07-26 04:35 | NUR ---
PT'S 24 HOUR URINE (PROTEIN) COLLECTION COMPLETED AT 0430 AND SPECIMEN WAS DELIVERED TO THE LAB. I ALSO SOUGHT CLARIFICATION FROM THE LAB REGARDING THE COLLECTION OF THE "BK VIRUS BY RT-PCR" SERUM BLOOD SPECIMEN ORDERED ON 07/24/21 TO BE DRAWN ON 07/25/21. DUSTY FROM THE LAB PROVIDED CLARIFICATION AND THE BLOOD DRAW WAS DONE THIS MORNING.
[2021-07-26 04:44] LABS: Hematocrit 29.3 % (33.0-51.0); Hemoglobin 8.4 g/dL (11.5-16.0)
[2021-07-26 05:10] LABS: Albumin, Blood 1.6 g/dL (3.4-5.0); Anion Gap 10 mmol/L (6-16); Blood Urea Nitrogen 88 mg/dL (8-24); Bun/Creatinine Ratio 34.4 (12.0-20.0); CO2, Blood 22 mmol/L (21-32); Chloride, Blood 107 mmol/L (98-108); Creatinine, Blood 2.56 mg/dL (0.40-1.00); Glomerular Filtration Rate 18 (60-); Glucose, Blood 186 mg/dL (70-99); Magnesium, Blood 2.3 mg/dL (1.6-2.4); Phosphorus, Blood 7.5 mg/dL (2.5-4.9); Potassium, Blood 5.1 mmol/L (3.5-5.5); Sodium, Blood 139 mmol/L (136-145)
--- NOTE | 2021-07-26 06:08 | NUR ---
SHIFT SUMMARY ASSUMED CARE AT 1900. PT REMAINS ON 2L O2 VIA NC WITH HUMIDIFIER, INITIALLY O2 SAT 98%. LATER IN THE SHIFT, DURING REPOSITIONING, PT BECAME SOB, WITH O2 SATS 80%-85%. SUPPLEMENTAL O2 INCREASED TO 4L IN NC AND PT REPOSITIONED, SOB SUBSIDED AND O2 SATS RETURNED TO >94%. PT SUPPLEMENTAL O2 LOWERED BACK DOWN TO 2L WITH O2 SATS >92%. PT ALSO NOTED WOTH NON-BLANCHABLE AREAS TO LEFT MEDIAL HEEL AND RIGHT DISTAL DORSAL FOOT. MEPILEX HEEL DRESSING PLACED IN LEFT HEEL AND BILATERAL PINK FOAM HEEL PROTECTORS PLACED WELL. PHOTOS PLACED IN PT'S CHART. 24 HR URINE COLLECTION COMPLETED AT 0430, SENT TO LAB. PT W/ HX OF PAD. PT RE-EDUCATED ON IMPORTANCE OF AND RATIONALE FOR TURNING AND REPOSITIONING AND VERBALIZED HER UNDERSTANDING. BED IS IN LOW POSITION WITH THE CALL LIGHT WITHIN REACH. BED ALARM ACTIVATED. WILL CONTINUE TO MONITOR.
[2021-07-26 07:37] LABS: Protein, Urine Quantitative 35.4 mg/dL (0.0-11.9)
[2021-07-26 13:16] LABS: Influenza A, PCR NEGATIVE (NEGATIVE); Influenza B, PCR NEGATIVE (NEGATIVE); Resp Syncytial Virus, PCR NEGATIVE (NEGATIVE); SARS-Cov-2 (COVID-19) PCR, MMC NEGATIVE (NEGATIVE)
--- NOTE | 2021-07-26 13:41 | NUR ---
Pt. was sitting up in a chair and welcomed my visit. Confirmed she had been visited by local process controls technician. Pr. verbalized gratitude. Pt has a pleasant demeanor and was grateful for my visit. Pastoral prayer was given.
--- NOTE | 2021-07-26 18:55 | NUR ---
SHIFT SUMMARY: COVID RAPID TEST NEGATIVE. BREATHING REMAINS SHALLOW AND TACHYPNEIC, WEAK COUGH EFFORT. LUNG SOUNDS COARSE. USING O2 @ 2 L/MIN NC, INCREASE TO 4 L/MIN WITH ACTIVITY. GOT UP TO BSC X 2, MAX ASSIST. DOES NOT ENDORSE PAIN, HAS SCHEDULED TYLENOL. WAS UP IN RECLINER FOR ~ 5 HOURS, WAS QUITE FATIGUED A RESULT. APPETITE IS POOR. DR. HERNANDEZ CONSULTED; ORDERED VASCULAR CONSULT FOR ABDOMINAL AORTIC ANEURYSM, CALLED DR. SCHULTZ' PAGER X 3 WITH NO ANSWER.
--- NOTE | 2021-07-27 05:11 | NUR ---
SHIFT SUMMARY ASSUMED CARE AT 1900. PT WITH PERIODS OF CONFUSION EARLY THIS MORNING WAS SOMEWHAT DIFFICULT TO REORIENT. PT REMAINS ON 2L O2 VIA NC. PT DOES GET SOB AND TACHYPNEIC WITH ACTIVITY AND TURNING/REPOSITIONING BUT RECOVERS WELL. PT WITH WET SOUNDING COUGH, DOES NOT APPEAR TO BE PRODUCTIVE. INTACT DRESSING TO SACRAL AREA AND LEFT HEEL. PT REMINDED ABOUT THE IMPORTANCE OF ALLOWING STAFF TO ASSIST WITH TURNING AND REPOSITIONING EVERY 2 HOURS-PT TENDS TO FAVOR LYING ON HER RIGHT SIDE. REMAISN WITH BLE EDEMA. BILATERAL FOAM HEEL PROTECTORS IN PLACE. BED IS IN LOW POSITION WITH THE CALL LIGHT WITHIN EASY REACH. WILL CONTINUE TO MONITOR.
[2021-07-27 05:19] LABS: Hematocrit 29.7 % (33.0-51.0); Hemoglobin 8.3 g/dL (11.5-16.0)
[2021-07-27 06:17] LABS: Albumin, Blood 1.8 g/dL (3.4-5.0); Anion Gap 13 mmol/L (6-16); Blood Urea Nitrogen 95 mg/dL (8-24); Bun/Creatinine Ratio 36.7 (12.0-20.0); CHOL/HDL RATIO 2.8; CO2, Blood 21 mmol/L (21-32); Calcium, Blood 8.9 mg/dL (8.5-10.1); Chloride, Blood 105 mmol/L (98-108); Cholesterol 102 mg/dL (50-200); Creatinine, Blood 2.59 mg/dL (0.40-1.00); Glomerular Filtration Rate 18 (60-); Glucose, Blood 155 mg/dL (70-99); HDL Cholesterol 37 mg/dL (>39); LDL/HDL RATIO 1.2; Low Density Lipoprotein Chol 43 mg/dL (0-110); Magnesium, Blood 2.4 mg/dL (1.6-2.4); Phosphorus, Blood 7.9 mg/dL (2.5-4.9); Potassium, Blood 4.8 mmol/L (3.5-5.5); Sodium, Blood 139 mmol/L (136-145); Triglycerides 108 mg/dL (30-160); Very Low Density Lipoprot Chol 21 mg/dL (6-32)
--- NOTE | 2021-07-27 17:37 | NUR ---
SHIFT SUMMARY PATIENT IS ALERT AND ORIENTED X2 THIS SHIFT. PLEASANT AND COOPERATIVE WITH CARE. THE PATIENT IS ON 2.5 LITERS OF O2 VIA NASAL CANNULA SATTING AT 93% THE PATIENT WAS ABLE TO WORK WITH PHYSICAL THERAPY THIS SHIFT. PATIENT BECOMES EXHAUSTED WITH VERY LITTLE ACTIVITY. 2 PERSON ASSIST TO THE BSC. PATIENT WAS HALLUCINATING THIS SHIFT. SON IS CONCERNED. DOCTOR MICHAEL NOTIFIED ABOUT CONCERNS. VSS. THIS NURSE WILL CONTINUE TO CARE FOR THE PATIENT UNTIL SHIFT REPORT IS GIVEN TO ONCOMING NURSE.
[2021-07-28 04:56] LABS: Hematocrit 30.3 % (33.0-51.0); Hemoglobin 8.6 g/dL (11.5-16.0)
[2021-07-28 05:38] LABS: Magnesium, Blood 2.5 mg/dL (1.6-2.4)
[2021-07-28 05:39] LABS: Albumin, Blood 1.7 g/dL (3.4-5.0); Anion Gap 9 mmol/L (6-16); Blood Urea Nitrogen 102 mg/dL (8-24); Bun/Creatinine Ratio 38.8 (12.0-20.0); CO2, Blood 23 mmol/L (21-32); Calcium, Blood 8.9 mg/dL (8.5-10.1); Chloride, Blood 106 mmol/L (98-108); Creatinine, Blood 2.63 mg/dL (0.40-1.00); Glomerular Filtration Rate 18 (60-); Glucose, Blood 169 mg/dL (70-99); Potassium, Blood 5.7 mmol/L (3.5-5.5); Sodium, Blood 138 mmol/L (136-145)
[2021-07-28 05:42] LABS: Phosphorus, Blood 8.5 mg/dL (2.5-4.9)
--- NOTE | 2021-07-28 07:16 | NUR ---
SHIFT SUMMARY PT IS A 71 Y/O FEMALE, ADMITTED FOR ACUTE RENAL FAILURE. SHE IS A&O X 2, VERY SOFT-SPOKEN. [place]ED[place] [facility] [place] VERY LOW URINE OUTPUT DURING THE NIGHT. CURRENTLY ON 2.5L O2 VIA NC. VITAL SIGNS STABLE. NO C/O ACUTE PAIN, NAUSEA OR SOB. REFUSED 0000 TYLENOL. THIS AM, PT PHOSPHORUS WAS CRITICAL AT 8.5. DR HERNANDEZ NOTIFIED, AND CHANGES IN PT MEDICATIONS ORDERED. DR HERNANDEZ ALSO ORDERED AN ECHO FOR THE PT. NO OTHER ACUTE CHANGES IN PT CONDITION NOTED DURING THE NIGHT. REPORT GIVEN TO ONCWINTER SMILEY.
[2021-07-28 16:15] LABS: Albumin, Blood 1.7 g/dL (3.4-5.0); Anion Gap 8 mmol/L (6-16); Blood Urea Nitrogen 99 mg/dL (8-24); Bun/Creatinine Ratio 36.7 (12.0-20.0); CO2, Blood 22 mmol/L (21-32); Chloride, Blood 106 mmol/L (98-108); Glomerular Filtration Rate 17 (60-); Glucose, Blood 167 mg/dL (70-99); Potassium, Blood 4.7 mmol/L (3.5-5.5); Sodium, Blood 136 mmol/L (136-145)
--- NOTE | 2021-07-28 17:58 | NUR ---
SHIFT SUMMARY PATIENT IS ALERT AND ORIENTED X2, CONFUSION, AND HALLUCINATIONS AT TIMES, PLEASANT AND COOPERATIVE WITH CARE. PATIENT WAS UP TO THE CHAIR FOR MEALS THIS SHIFT. PATIENT IS STILL 2 MAX ASSIST, VERY WEAK AND EASILY BECOMES EXHAUSTED. PATIENT IS ON 2.5 LITERS O2. SATTING ABOVE 90% MEPILIX DRESSING ON COCCYX CHANGED TODAY. PATIENT CURRENTLY RESTING. CALL LIGHT WITHIN REACH. THIS NURSE WILL CONTINUE TO CARE FOR THE PATIENT UNTIL SHIFT REPORT IS GIVEN TO ONCOMING NURSE.
[2021-07-29 04:52] LABS: Hematocrit 27.8 % (33.0-51.0); Hemoglobin 7.8 g/dL (11.5-16.0)
[2021-07-29 05:28] LABS: Anion Gap 11 mmol/L (6-16); Blood Urea Nitrogen 111 mg/dL (8-24); Bun/Creatinine Ratio 40.5 (12.0-20.0); CO2, Blood 22 mmol/L (21-32); Calcium, Blood 8.7 mg/dL (8.5-10.1); Chloride, Blood 106 mmol/L (98-108); Creatinine, Blood 2.74 mg/dL (0.40-1.00); Glomerular Filtration Rate 17 (60-); Glucose, Blood 132 mg/dL (70-99); Magnesium, Blood 2.4 mg/dL (1.6-2.4); Potassium, Blood 5.1 mmol/L (3.5-5.5); Sodium, Blood 139 mmol/L (136-145)
[2021-07-29 05:55] LABS: Phosphorus, Blood 8.4 mg/dL (2.5-4.9)
--- NOTE | 2021-07-29 06:43 | NUR ---
SHIFT SUMMARY PT IS A 71 Y/O FEMALE, ADMITTED FOR ACUTE RENAL FAILURE. SHE IS A&O X 2, VERY SOFT SPOKEN. PT DENIED ANY C/O ACUTE PAIN, NAUSEA OR SOB, AND REFUSED 0000 TYLENOL. VITAL SIGNS STABLE. PT AM PHOSPHORUS CRITICALLY HIGH AT 8.[address] HERNANDEZ NOTIFIED, AND KIM ORDERED THE CANCELED WHEN DOCTOR INFORMED THAT HOSPITAL IS OUT OF THAT MEDICATION. NO OTHER CHANGES IN ORDERS AT THIS TIME. NO OTHER ACUTE CHANGES IN PT CONDITION NOTED DURING THE NIGHT. WILL CONTINUE TO MONITOR AND TREAT PER EMAR UNTIL HAND OFF TO DAY SHIFT RN.
[2021-07-29 11:24] LABS: Source, Urine Straight Cath
[2021-07-29 11:39] LABS: Appearance, Urine Clear (Clear); Bilirubin, Urine Neg (Neg); Blood, Urine Neg (Neg); Color, Urine Yellow (P-Yellow); Glucose Qualitative, Urine Neg (Neg); Ketones, Urine Neg (Neg); Leukocyte Esterase, Urine Neg (Neg); Nitrite, Urine Neg (Neg); Protein, Urine 1+ (Neg); Urobilinogen, Urine NORM (Normal)
--- NOTE | 2021-07-29 18:13 | NUR ---
SHIFT SUMMARY PATIENT IS ALERT AND ORIENTED THIS EVENING X1-2. PATIENT IS COOPERATIVE. PATIENT HAS BEEN HALLUCINATING THIS SHIFT. POOR PO INTAKE. CLINIMIX STARTED RUNNING AT 50MLS/HR. PATIENT IS VERY WEAK. PATIENT HAD A HARD TIME GETTING FROM BSC TO THE CHAIR SAFELY WITH 2 MAX ASSIST. PATIENT NOW HAS A GUZMAN CATHETER. PER DR. HERNANDEZ'S ORDERS. UA SENT OFF PER PROTOCOL. UPDATED FAMILY TODAY. SON WAS IN TO SEE PATIENT TODAY. PATIENT IS DRINKING A GLUCERNA FOR DINNER. REFUSING DINNER TRAY.
[2021-07-30 05:28] LABS: Hematocrit 26.8 % (33.0-51.0); Hemoglobin 7.5 g/dL (11.5-16.0)
[2021-07-30 06:15] LABS: Albumin, Blood 1.8 g/dL (3.4-5.0); Anion Gap 11 mmol/L (6-16); Blood Urea Nitrogen 113 mg/dL (8-24); Bun/Creatinine Ratio 38.7 (12.0-20.0); CO2, Blood 20 mmol/L (21-32); Calcium, Blood 8.6 mg/dL (8.5-10.1); Chloride, Blood 106 mmol/L (98-108); Creatinine, Blood 2.92 mg/dL (0.40-1.00); Glomerular Filtration Rate 16 (60-); Glucose, Blood 215 mg/dL (70-99); Magnesium, Blood 2.4 mg/dL (1.6-2.4); Potassium, Blood 5.2 mmol/L (3.5-5.5); Sodium, Blood 137 mmol/L (136-145)
[2021-07-30 06:28] LABS: Phosphorus, Blood 8.8 mg/dL (2.5-4.9)
--- NOTE | 2021-07-30 07:24 | NUR ---
SHIFT SUMMARY PT IS A 71 Y/O FEMALE, ADMITTED FOR ACUTE RENAL FAILURE. SHE IS A&O X 2, WITH OCCASIONAL VISUAL HALLUCINATIONS. PT IS ON 3L O2 VIA NC. VITAL SIGNS STABLE. PT DENIED THE NEED FOR SCHEDULED PAIN MEDS. NO C/O NAUSEA OR SOB. PT ON CLINIMIX @ 50 ML/HR. CRITICAL PHOSPHORUS THIS AM PER LAB AT 8.8. DR HERNANDEZ NOTIFIED. PHOSLO INCREASED FROM 1-[address], PATENT AND DRAINING. NO OTHER ACUTE CHANGES IN PT CONDITION NOTED DURING THE NIGHT. WILL CONTINUE TO MONITOR AND TREAT PER EMAR UNTIL HAND OFF TO DAY SHIFT RN.
[2021-07-30 10:49] LABS: PCO2 Arterial 42.6 mmHg (35-45); PO2 Arterial 65.3 mmHg (80-100); pH Blood Arterial 7.33 (7.35-7.45)
--- NOTE | 2021-07-30 16:40 | NUR ---
Echocardiogram completed.
[2021-07-30 17:04] LABS: BASOPHILS ABSOLUTE AUTO 0.03 K/mm3 (0.00-0.23); BASOPHILS PERCENT AUTO 0 % (0-2); EOSINOPHILS ABSOLUTE AUTO 0.05 K/mm3 (0.00-0.68); EOSINOPHILS PERCENT AUTO 0 % (0-6); Hematocrit 25.8 % (33.0-51.0); Hemoglobin 7.4 g/dL (11.5-16.0); IMMATURE GRAN ABSOLUTE AUTO 0.49 K/mm3 (0.00-0.10); IMMATURE GRAN PERCENT AUTO 2 % (0-1); LYMPHOCYTES ABSOLUTE AUTO 0.98 K/mm3 (0.84-5.20); LYMPHOCYTES PERCENT AUTO 4 % (21-46); MONOCYTES ABSOLUTE AUTO 1.02 K/mm3 (0.16-1.47); MONOCYTES PERCENT AUTO 4 % (4-13); Mean Corpuscular HGB 27.8 pg (26.0-34.0); Mean Corpuscular HGB Conc 28.7 g/dL (31.5-36.5); Mean Corpuscular Volume 97 fL (80-100); Mean Platelet Volume 10.1 fL (9.1-12.4); NEUTROPHILS ABSOLUTE AUTO 21.75 K/mm3 (1.96-9.15); NEUTROPHILS PERCENT AUTO 90 % (41-73); NRBC ABSOLUTE 0.04 K/mm3 (0.00-0.02); NRBC Auto 0.2 /100 WBC (0.0-0.2); Platelet Count 491 K/mm3 (150-400); RDW Coefficient Variation 19.9 % (11.7-14.2); Red Blood Cell Count 2.66 M/mm3 (3.80-5.20); White Blood Cell Count 24.32 K/mm3 (4.00-11.30)
--- NOTE | 2021-07-30 17:23 | NUR ---
Pt transferred to PCU. Pt lethargic but does answer orientation questions. Told me her age, the current year and where she was was disoriented to situation. VSS on 4L. Sating 88-92%. RT set up BIPAP in room, but has not attached pt at this time.
--- NOTE | 2021-07-30 17:51 | NUR ---
Received consult to see this patient today. 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 She is from [facility], was visiting family when she admitted to the hospital with lethargy, not urinating. Up until today, they have been able to keep her creatinine and other high labs treanding down. However 2 days ago the creatinine went higher, and by today, pt is no longer making urine, and has altered mental and respiratory status'. She is being moved to PCU. At the request of vishnu Watkins, I evaluated the patient and then spoke to pt's son Moncho and Qamar about pt's FULL code status. Pt's son states "This came out of left jaiden", and he would prefer to Dr. Elkins about this first. I did let Dr. Shine know, and will follow up with the famlily tomorrow.
--- NOTE | 2021-07-30 18:17 | NUR ---
Bumex gtt started at 20ml/hr for 2mg/hr which will run for 3hrs, then see MAR for continuous dose 1mg/hr. VSS on 4L. BIPAP is ready and in room, RT held off for now to start pt on BIPAP. IV abx started. New IV placed. Only 50ml out since transfer and IV push of bumex.
--- NOTE | 2021-07-30 18:30 | NUR ---
PT TRANSFERRED TO PCU APPROX 1730. PT HAS HAD INCREASED LETHARGY TODAY. INCREASE IN UPPER AIRWAY SECRETIONA/RHONCHI. NT SUCTION THIS AM PER RT WITH LG AMOUNT LAGOS CREAMY SPUTUM SENT TO LAB FOR CX. PT OPENS EYES TO VERBAL BUT FALLS RIGHT BACK TO SLEEP. WAS ABLE TO AWAKEN THIS AM AND CRUSH MEDS, WAS ABLE TO SWALLOW A FEW BITES WITH NO SS OF ASPIRATION. OBTAINED ABG IN AM RELATED TO LETHARGY. CLINIMIX WAS RUNNING 50/HR UNTIL 1500 AND DC'D. FAMILY AT BEDSIDE MOST OF THE DAY. PALLIATIVE CALLED FOR HELP MAKING A REALISTIC DECISIONS IN CASE PT CONT TO DECLINE. MOVED TO PCU FOR CPAP AND AID IN RESP SECRETIONS AND MONITORING I/O MORE CLOSELY IN LIGHT OF CHANGES.
--- NOTE | 2021-07-30 18:32 | NUR ---
Assumed care [phone], pt was a transfer from medical floor. Pt was given an IV bumex push of 5mg and was started on a bumex gtt on arrival to floor. Bumex 20ml/hr (2mg/hr) for 3 hrs initiated at 1749. Then the 10ml/hr (1mg/hr) dose will start. Pt has produced 50ml of urine via anglin since transfer. VSS on 4L, RT held off on BIPAP for now, BIPAP is in room. Pt lungs sound very gurgly and pt has poor cough. Encouraged to cough and deep breath. Pt is lethargic, but does wake up when talked to. Pt answered my orientation questions for the most part, just didn't know the situation well. Could tell me the current year and her age as well as location. Pt falls right back to sleep. Did not attempt swallow eval due to decrease alertness, will keep NPO for now. Edema present in lower ext. CBG 135, no insulin given. Code status was updated after MD talked with next of kin. Limited code. No CPR, but ok with dialysis and intubation, see orders. .
[2021-07-30 20:28] LABS: Bun/Creatinine Ratio 40.4 (12.0-20.0); Calcium, Blood 8.7 mg/dL (8.5-10.1); Creatinine, Blood 3.07 mg/dL (0.40-1.00); Potassium, Blood 4.5 mmol/L (3.5-5.5)
--- NOTE | 2021-07-30 21:35 | NUR ---
ASSUMED CARE OF PT AT 1900. A/O TO SELF, DATE, LOCATION, BUT UNSURE OF THE SITUATION AT BEGINNING OF SHIFT. TOWARDS 2099 SHE ONLY RESPONDS TO PHYSICAL TOUCH, UNABLE TO MAKE NEEDS KNOWN OR TAKE IN ANYTHING ORALLY. MAINTAINING ABOVE 85% ON 4L NC, LS COARSE T/O WITH OBSERVED GRUNTING. SINUS TACH ON TELE, FAINT PEDAL/RADIAL PULSES T/O. 2+ PITTING EDEMA BLE. SCANT URINE OUTPUT THROUGH GUZMAN, CLEAR/YELLOW. BLADDER SCAN SHOWING 0ML. BUMEX GTT ORIGINALLY AT 2MG/HR, CHANGED TO 1MG/HR AT 2044 PER ORDER. CONTACT MARY PER REQUEST WITH NEW STAT LABS, ORD[place] [facility] [place]. PATIENT NPO FOR PROCEDURE, AND AMS. PATIENT UNABLE TO TAKE HER NIGHTTIME MEDS. SACRAL SUPERFICIAL DECUBITUS ULCER COVERED WITH MEPILEX. PATIENT HAS ALL OVER PAIN, AND PAINFUL MOANS WITH ANY MOVEMENTS. WILL UPDATE CHANEGS OCCUR.
[2021-07-31 04:15] LABS: Hematocrit 24.4 % (33.0-51.0)
[2021-07-31 04:51] LABS: Anion Gap 12 mmol/L (6-16); Blood Urea Nitrogen 132 mg/dL (8-24); Bun/Creatinine Ratio 43.6 (12.0-20.0); CO2, Blood 22 mmol/L (21-32); Chloride, Blood 109 mmol/L (98-108); Creatinine, Blood 3.03 mg/dL (0.40-1.00); Glomerular Filtration Rate 15 (60-); Glucose, Blood 119 mg/dL (70-99); Magnesium, Blood 2.3 mg/dL (1.6-2.4); Potassium, Blood 4.2 mmol/L (3.5-5.5); Sodium, Blood 143 mmol/L (136-145)
[2021-07-31 05:14] LABS: Phosphorus, Blood 8.9 mg/dL (2.5-4.9)
[2021-07-31 08:55] LABS: Source, Urine Foley catheter
[2021-07-31 09:26] LABS: Appearance, Urine Hazy (Clear); Bilirubin, Urine Neg (Neg); Blood, Urine Neg (Neg); Color, Urine Yellow (P-Yellow); Glucose Qualitative, Urine Neg (Neg); Ketones, Urine Neg (Neg); Leukocyte Esterase, Urine 3+ (Neg); Nitrite, Urine Neg (Neg); Protein, Urine Neg (Neg); Specific Gravity, Urine 1.015 (1.003-1.022); Urobilinogen, Urine NORM (Normal)
--- NOTE | 2021-07-31 10:07 | NUR ---
Pt refusing cares this AM. She refused blood draws, cbgs, vas cath placement, MD notifed. I was informed to call son and palliative team. Pt reports she does not want anymore meds or tx. Palliative team contacted to see if we could have a meeting with son to figure out exactly the direction we want to go. I called the son Moncho at to update him and notify him that palliative team will be contacting him. Around 1000 pt refused lung study and started ripping off oxygen monitor. I explained to her we need to monitor her oxygen saturations and she stated she is done and wants to be disconnected from everything, MD notified. Lungs sound super wet and very gurgly cough, refused for me to suction. VSS on 3L. Bumex gtt is still running and I was able to give IV bumex and IV abx this AM. Pt can answer oriention questions (oriented to time, self and place and only disoriented to situation). NPO for unsafe swallow, swallow eval ordered.
[2021-07-31 10:17] LABS: Hyaline Casts TNTC /lpf (0-2)
[2021-07-31 10:19] LABS: Bacteria Mod /hpf; Red Blood Cells, Urine 0-2 /hpf (0-2); Squamous Epithelial Cells Rare /hpf (Few)
[2021-07-31 10:20] LABS: Amorphous Mod (0-Heavy); Mucus Light (0-Heavy)
--- NOTE | 2021-07-31 15:57 | NUR ---
Met pt. in bed and her nurse in the room attending to her needs, offered prayers and spiritual support
--- NOTE | 2021-07-31 17:37 | NUR ---
Pt moved to PCU last evening, and jaimie her son was able to visit. He states pt was able to tell him she does want dialysis and wants to live. However, she waxes and wanes regarding further treatment with dialysis. Will review again tomorrow, as no decisions have been made yet.
--- NOTE | 2021-07-31 18:21 | NUR ---
Shift Note: In AM pt was refusing all cares, around noon pt started allowing us to take cbgs again and take blood draws and vitals. Palliative team met with pt and called the son. MD updated family at beside this evening. Pt was agreeable to dialysis if needed when speaking with MD. Family discussed in detail with Dr. Pierre the potential avenues to go. The plan is to continue the IV abx, bumex gtt for the next few days and watch kidney function and reassess at that time. FIXED WING AIRCRAFT FLIGHT ENGINEER eval done today and pt does not have safe swallow. Pt remains NPO and FIXED WING AIRCRAFT FLIGHT ENGINEER will assess again in AM. FIXED WING AIRCRAFT FLIGHT ENGINEER said pt can have nectar thick water only if she asks for something to drink and only with a spoon until re-eval. VSS on 3L. Bumex gtt continued. Pt has a little more output today than yesterday. CBGs have been good. IV bumex gtt and IV pushes given per orders. Lundberg in place. Cough still very weak, suctioning on prn.
[2021-08-01 04:00] LABS: Hematocrit 26.2 % (33.0-51.0); Hemoglobin 7.3 g/dL (11.5-16.0)
[2021-08-01 04:41] LABS: Albumin, Blood 1.9 g/dL (3.4-5.0); Anion Gap 16 mmol/L (6-16); Blood Urea Nitrogen 140 mg/dL (8-24); Bun/Creatinine Ratio 43.8 (12.0-20.0); CO2, Blood 19 mmol/L (21-32); Calcium, Blood 8.8 mg/dL (8.5-10.1); Chloride, Blood 108 mmol/L (98-108); Glomerular Filtration Rate 14 (60-); Glucose, Blood 149 mg/dL (70-99); Magnesium, Blood 2.6 mg/dL (1.6-2.4); Potassium, Blood 4.5 mmol/L (3.5-5.5); Sodium, Blood 143 mmol/L (136-145)
--- NOTE | 2021-08-01 04:55 | NUR ---
PATIENT WITH EPISODE OF HR SUSTAINED IN 150'S FOR A FEW MIN THEN UP TO 180'S AROUND 0115 THIS AM. RESTING IN BED AT THIS TIME AND COMPLAINED OF SOME PALPITATIONS.BP WAS ON THE SOFT SIDE WITH MAP AROUND 60. MD MADE AWARE OF EVENT AND GAVE ONE TIME DOSE OF 5MG IV PUSH LOPRESSOR. HR CURRENTLY 91 ON THE MONITOR. BP STABLE WITH MAP> 65. RESTING COMFORTABLY IN BED. WILL CONTINUE TO MONITOR.
[2021-08-01 05:10] LABS: BK QUANTITATION PCR Negative (Negative)
[2021-08-01 05:10] LABS: Phosphorus, Blood 8.9 mg/dL (2.5-4.9)
--- NOTE | 2021-08-01 06:07 | NUR ---
SHIFT [facility] PATIENT FOUND TO BE LETHARGIC, ORIENTED X3 WITH GARBLED SPEECH AND GENERALIZED WEAKNESS.FOLLOWS COMMANDS. GRIMACES WITH ANY TOUCH TO SKIN. BP ON THE SOFT SIDE AND MAP DID DIP BELOW 65 EARLY THIS AM AFTER IV PUSH LOPRESSOR BUT IMPRVOED NOW BACK TO BASELINE. HR STABLE IN THE 70'S-90'S EXCEPT FOR A FEW MINS OF TACHY SUSTAING IN THE 160'S. SEE PREVIOUS NOTE FOR DETAILS. HR BEEN IN 80'S SINCE AFTER LOPRESSOR GIVEN. Q2H ORAL CARE AND TURNS. NPO EXCEPT FOR OCCASIONAL SIP OF NECTAR THICK WATER WITH SPOON. ORAL MEDS HELD WHEN POSSIBLE. WET SOUNDING COUGH CONTINUES BUT STILL NOT GETTING SPUTUM UP. CRACKLES HEARD IN UPPER LOBES. GUZMAN PATENT DRAINING TO GRAVITY WITH MINIMAL OUTPUT BUT SLOWLY IMPROVING FROM DAYS BEFORE. BUMEX DRIP RUNNING PER ORDER. NO ACUTE CONCERNS AT THIS TIME. WILL CONTINUE PLAN OF CARE UNTIL REPORT GIVEN TO CLARKE SMILEY.
--- NOTE | 2021-08-01 08:38 | NUR ---
Pt BP is soft this AM, MAP is >65. On tele noticed ST depression 1.15 box. Notifed MD at bedside during rounds, no new orders at this time. Pt will be having ADJUNCT PSYCHOLOGY PROFESSOR re-eval today. Bumex gtt continued, held IV push bumex with the low BP.
--- NOTE | 2021-08-01 10:06 | NUR ---
EKG completed per MD orders. Sinus tach w/ 2nd degree type 1 AV block.
--- NOTE | 2021-08-01 10:15 | NUR ---
MD notified of EKG completed and some ST depression, mainly 1.5 small boxes on EKG.
[2021-08-01 11:32] LABS: BASOPHILS ABSOLUTE AUTO 0.06 K/mm3 (0.00-0.23); BASOPHILS PERCENT AUTO 0 % (0-2); EOSINOPHILS ABSOLUTE AUTO 0.03 K/mm3 (0.00-0.68); EOSINOPHILS PERCENT AUTO 0 % (0-6); Hematocrit 26.9 % (33.0-51.0); Hemoglobin 7.3 g/dL (11.5-16.0); IMMATURE GRAN ABSOLUTE AUTO 0.46 K/mm3 (0.00-0.10); IMMATURE GRAN PERCENT AUTO 2 % (0-1); LYMPHOCYTES ABSOLUTE AUTO 0.86 K/mm3 (0.84-5.20); LYMPHOCYTES PERCENT AUTO 3 % (21-46); MONOCYTES ABSOLUTE AUTO 0.74 K/mm3 (0.16-1.47); MONOCYTES PERCENT AUTO 2 % (4-13); Mean Corpuscular HGB 27.5 pg (26.0-34.0); Mean Corpuscular HGB Conc 27.1 g/dL (31.5-36.5); Mean Platelet Volume 10.3 fL (9.1-12.4); NEUTROPHILS ABSOLUTE AUTO 28.41 K/mm3 (1.96-9.15); NEUTROPHILS PERCENT AUTO 93 % (41-73); NRBC ABSOLUTE 0.02 K/mm3 (0.00-0.02); NRBC Auto 0.1 /100 WBC (0.0-0.2); Platelet Count 468 K/mm3 (150-400); RDW Coefficient Variation 20.6 % (11.7-14.2); RDW Standard Deviation 72.5 fL (35.1-46.3); Red Blood Cell Count 2.65 M/mm3 (3.80-5.20); White Blood Cell Count 30.56 K/mm3 (4.00-11.30)
[2021-08-01 11:47] LABS: Mean Corpuscular Volume 102 fL (80-100)
--- NOTE | 2021-08-01 12:43 | NUR ---
Pt started sustaining 150-170s around 1140. Rl Baptiste was at bedside. Pressures SBP 90s, with MAPs in the 60-70s. Pt had several beats of VTAch 6 and 9 bts, Dr. Shine notified at bedside. Dr. Shine also also viewed EKG at bedside. Dr. Shine said she would update family (nate) via phone call. Amio bolus given. HR now 105 at 1245.
--- NOTE | 2021-08-01 12:49 | NUR ---
Pt declined any chest pain. Still has the weak cough and struggles to bring up any congestion, suctioned in mouth, but not much in the upper airway. RR 20-26
--- NOTE | 2021-08-01 15:13 | NUR ---
Met Pt. lying in bed resting pt is fine offered prayers and blessed pt.
--- NOTE | 2021-08-01 15:24 | NUR ---
PT SUSTAINING 150s again, development administrator will be calling Dr. Elkins and Dr. Shine. BP 93/55 with MAP of 67.
--- NOTE | 2021-08-01 16:04 | NUR ---
Amiodarone gtt was started per orders. Running 33.3ml/hr, filter in place. MAP 70s, but SBP still low 89-97. Dr. Elkins and Dr. Shine.
--- NOTE | 2021-08-01 16:30 | NUR ---
Pt continues to waffle on decision regarding doing dialysis or not. However, she has said she wants to try dialysis and her son Moncho is adamant we try. Spoke with Dr. Pierre this evening, and he currently plans to carry forward with treatment, and attempt dialysis when appropriate. Moncho did change pt's code status from full code to limited today. We spoke at length, and he is hopeful that with dialysis, her mental status will clear and she can make her own decision at that time. No changes made to plan of care at this time.
--- NOTE | 2021-08-01 17:15 | NUR ---
Shift note: Pt is lethargic, but does wake up when in room. Oriented x3. Hard to understand the pt at times due to hoarse voice. Pt has weak cough that pt has a hard time getting anything up. RR 20-26. 2-3L oxygen today. On tele in AM we noticed ST depression, notified and EKG done. Around 1130 pt had episodes of VTACH 6 and 9 bts as well as sustained tachycardia 150-170s. Dr. Shine notified at bedside and ordered amiodarone bolus. Rate was in 80s after bolus for probably about 2hrs and then jumped back up to sustaining in 150s, Dr. Shine notified again and amio gtt initiated at 33.3ml/hr. BP soft when HR jumped up, but recovered once HR decreased. Bumex gtt is still running 1mg/hr. Dr. Elkins was updated on pt status. Son and daughter and law were both updated today. Lundberg in place and draining well. CBGs have been good, no coverage needed. Wound on coccyx, picture in chart. Open wound. Mepalex placed and hips floated and position changed Q2. PILLOWCASE TURNER re-evaluated pt today and said ok to give meds crushed in applesauce. I gave the prograf, prednison and the calcium acetate around 1100, right before the increase heart rate occured. Pt did ok with the applesauce and crushed pills. In the evening pt seemed to sleepy to give any PO meds. PILLOWCASE TURNER did ok thin liquids with spoon. Again pt was too lethargic and not alert enough in evening to give any oral intake. IV abx continued per orders. PT worked with pt in bed some this AM.
--- NOTE | 2021-08-01 18:30 | NUR ---
UPDATE AT END OF SHIFT: 1800 pt BP 70/50s with MAP of 60. Notified Dr. Shine and albumin 25mg ordered one time dose. I also called Dr. Elkins and he ordered albumin 12.5mg BID, mitodrine 5mg PO TID hold if >130. Notified Dr[address] Elkins she is not alert enough to swallow PO at this time, he said to give when she is alert. Dr. Elkins wanted me to contact the family to make sure they are ok with dialysis and would like for pt to have permacth placed in AM. Consult placed for Dr. Rodriguez and I spoke with him on the phone. He said he is not on tomorrow, but Dr. Henriquez is and he will notify him of the need for placement in AM. Plan is for pt to have dialysis after permacath placement. The son Moncho and daughter in law Erma were updated of this. Dr. Pierre was also notified. Pt has only had 200ml output today and Dr. Elkins was notified of this as well. BP up to 87/47 still MAP of 60 at 1830, IV albumin is running at this time.
--- NOTE | 2021-08-01 18:56 | NUR ---
Pt BP is still 84/53 MAP of [address] El[address] notified of BP and he wants to continue bumex at this time. I tried to reach , but did not get an answer. Report given to night RN. Recheck BP MAP 65.
[2021-08-01 23:34] LABS: Bicarbonate Venous 10.5 mmol/L (24.0-30.0); PCO2 Venous 36.5 mmHg (38-42); PO2 Venous 37.1 mmHg (38-42); pH Blood Venous 7.08 (7.34-7.37)
[2021-08-02 01:40] LABS: Albumin, Blood 2.2 g/dL (3.4-5.0); Bun/Creatinine Ratio 37.3 (12.0-20.0); Calcium, Blood 9.1 mg/dL (8.5-10.1); Creatinine, Blood 3.86 mg/dL (0.40-1.00); Potassium, Blood 4.9 mmol/L (3.5-5.5)
[2021-08-02 01:46] LABS: Hematocrit 25.8 % (33.0-51.0); Mean Corpuscular HGB 28.6 pg (26.0-34.0); Mean Corpuscular HGB Conc 27.1 g/dL (31.5-36.5); Mean Corpuscular Volume 105 fL (80-100); Mean Platelet Volume 10.3 fL (9.1-12.4); NRBC ABSOLUTE 0.21 K/mm3 (0.00-0.02); NRBC Auto 0.5 /100 WBC (0.0-0.2); Platelet Count 524 K/mm3 (150-400); RDW Coefficient Variation 21.2 % (11.7-14.2); RDW Standard Deviation 77.5 fL (35.1-46.3); Red Blood Cell Count 2.45 M/mm3 (3.80-5.20); White Blood Cell Count 44.26 K/mm3 (4.00-11.30)
[2021-08-02 01:55] LABS: Albumin/Globulin Ratio 0.5 (0.8-1.8); Bilirubin, Total 0.9 mg/dL (0.1-1.0); Globulin, Blood 4.2 g/dL (2.2-4.0); Total Protein, Blood 6.4 g/dL (6.4-8.2)
[2021-08-02 02:01] LABS: Phosphorus, Blood 11.4 mg/dL (2.5-4.9)
[2021-08-02 02:08] LABS: BAND PERCENT MAN 10 % (0-8); BASOPHILS PERCENT MAN 0 % (0-2); EOSINOPHILS PERCENT MAN 0 % (0-6); LYMPHOCYTES ABSOLUTE MAN 1.77 K/mm3 (0.84-5.20); LYMPHOCYTES PERCENT MAN 4 % (21-46); MONOCYTES ABSOLUTE MAN 0.88 K/mm3 (0.16-1.47); MONOCYTES PERCENT MAN 2 % (4-13); SEG NEUTROPHILS PERCENT MAN 84 % (41-73); TOTAL CELLS COUNTED 100
--- NOTE | 2021-08-02 04:29 | NUR ---
SUMMARY OF ARRIVAL TO ICU: PT ARRIVES AT ICU @ 2338 WITH BERNARD SEVILLA CHAD AND DR. RAGINI JOSÉ IN ATTENDANCE, CALL HAS BEEN MADE TO FOR INTUBATION/CONSULTATION. ORDERS FOR ATROPINE AND BICARB BY FOR PT, RHYTHM HAS BECOME ASHLEE- CARDIC, RHYTHM INCREASE WITH ATROPINE, BP 22/14 AFTER MULTIPLE ATTEMPTS, DR. WEINER IN ROOM, FURTHER ORDERS RECEIVED. LEVOPHED GTT STARTED. INTUBATED @ 2348, WITH 7.5 TUBE 24CM @ THE LIPS, SETTINGS 16/350/5/100%. CONTINUED TO STRUGGLE WITH BP, EPI GIVEN, MAG GIVEN, AMIO, PADS PLACED FOR RHYTHM DISTURBANCES, PULSES BY DOPPLER ONLY, CALCIUM CHLORIDE GIVEN, INSULIN GIVEN, IL NS WIDE OPEN, VASOPRESSIN STARTED 11, TRIALYSIS CATH PLACED, 500CC BOLUS STARTED 0028, MIDAZOLAM DRIP STARTED @ 0115. FAMILY (SON AND DAUGHTER IN LAW) IN TO BE WITH PATIENT. CRITICAL PHOSPHORUS CALLED BY LAB, CALLED TO DR. WEINER, HE SAYS TO CALL WHEN ALL LABS ARE BACK. 0220-FAMILY DISCUSSING WHETHER THEIR DECISIONS HAVE BEEN THE BEST. BERNARD CALLED IN TO TALK WITH FAMILY WELL. 0230 CALL TO ABOUT THE LABS, WANTS TO BEGIN DIALYSIS LATER THIS AM. FAMILY LEFT, PT TURNED AND FURTHER ASSESSED. PT WITH BUTTOCKS DRESSING IN PLACE OVER COCCYX, HEEL WITH PROTECTOR DRESSINGS, R FOOT WITH BRUISING. FEET EDEMATOUS, HANDS WELL. PERIPHERAL IV SITES: RIGHT FOREARM, RIGHT HAND, LEFT FOREARM. RIGHT NECK WITH TRIALYSIS CATHETER. PT BEING TITRATED DOWN ON THE LEVOPHED, NOW AT 15MCG, FIO2 DOWN TO 35%, VASO @ 0.4U/MIN, MIDAZOLAM @ 2ML/HR, PT OPENS EYES, NOT FOLLOWING COMMANDS, GAZE DISCONJUGATE. PUPILS RESPONSIVE.
--- NOTE | 2021-08-02 05:33 | NUR ---
SUMMARY PRIOR TO PATIENT TRANSFERRED TO ICU PT LETHARGIC, BUT ALERT AND WAS COMMUNICATING WITH STAFF. ABLE TO MAKE NEEDS KNOWN. ONCE RN GOT 1900 VITAL SIGNS, BP HAD BEEN READING CONSISTENTLY LOW. BP WAS LOW DURING DAY SHIFT WELL. RN TO GET ALL PM MEDS, BUT PT BEING LETHARGIC AND HAVING ASPIRATED RECENTLLY, DID NOT FEEL COMFORTABLE GIVING PO MEDS OTHER THAN HER MIDODRINE AND IMMUNOSUPPRESSANT MEDS. PT REFUSED TO TAKE MIDODRINE AND IMMUNOSUPPRESSANT MEDS. DID NOT WANT ANYTING TO EAT OR DRINK WITH HER MEDICATION. RN EDUCATED PATIENT ON IMPORTANCE OF AT LEAST ATTEMPTING TO TAKE HER MIDODRINE HER BP IS VERY LOW. NIGHT CONTINUES TO GO ON, BP REMAINS LOW AND MENTATION IS NOT IMPROVING, BUT NOT WORSENING. RN SPOKE WITH PCU AND ICU CHARGE REGARDING PATIENT CONDITION, THIS RN SAW POTENTIAL FOR PATIENT NEEDING TO TRANSFER TO ICU. RN SPOKE WITH RAGINI ABOUT BP BEING VERY LOW - SHE SUGGESTED TO STOP THE BUMEX GTT FOR 20 MINUTES, AND NOTIFY MARY OF THE PAUSE RELATED TO THE LOW BP. ONCE NOTIFIED MARY OF PAUSE IN BUMEX AND LOW BP, MARY ORDERED TO DC BUMEX GTT AND ORDER ANOTHER DOSE OF ALBUMIN AT 2200. RN WAS IN PT ROOM, AND MARY AND RAGINI BOTH ARRIVED WE DISCUSSED PT PLAN AND CONDITION. MARY NOTED IMPORTANCE OF BUMEX GTT AND WHY IT IS NECESSARY, AND RN SUGGESTED IF HE WANTS THE GTT TO CONTINUE, PT MAY BE GOOD CANDIDATE FOR ICU TO BE PLACED ON LEVO GTT AND BUMEX GTT. MARY WANTED TO KEEP PT HERE LONG SYSTOLIC BP REMAINS >70. AT SOME TIMES, BP MAP WOULD BE ANYWHERE FROM HIGH 40'S TO 60'S. RAGINI ORDERED THE AMIO GTT TO BE DC'D HER HR WAS SUSTAINING 90'S, AND SHE ORDERED AN ABG TO BE DONE. RN CALLED RESPIRATORY FOR ABG, BUT UNSUCCESSFUL D/T BP BEING REAL LOW. GOT OKAY TO CHANGE ORDER TO VBG - CALLED LAB. LAB GEOFF VBG AT ABOUT 2315, AND GOT RESULTS (SEE BLOOD GAS RESULTS), CALLED RAGINI AT THIS TIME AND SHE MET US AT BEDSIDE. AT THIS TIME, PT EYES WERE FIXED ON CEILING, UNRESPONSIVE TO PAINFUL SITMULI. STERNAL RUBS DONE, NO RESPONSE. PCU CHARGE CALLED ICU CHARGE FOR A RAPID SCENARIO. GOT THE OKAY FOR THE TRANSFER TO ICU. PT TRANSPORTING TO ICU, SHEET METAL SHOP SUPERVISOR CALLED TO NOTE THAT PT HR WAS TRENDNING DOWN, PATIENT BEGAN TO "CODE" ONCE WE GOT TO ICU. PT WAS A DNR - OKAY WITH INTUBATION, MEDS, AND DEFIB. SEE ICU CHART FOR EVENTS THAT TOOK PLACE THERE ONCE TRANSFER COMPLETE.
[2021-08-02 05:49] LABS: Hematocrit 26.2 % (33.0-51.0); Hemoglobin 7.2 g/dL (11.5-16.0); Mean Corpuscular HGB Conc 27.5 g/dL (31.5-36.5); Mean Corpuscular Volume 102 fL (80-100); Mean Platelet Volume 10.5 fL (9.1-12.4); NRBC ABSOLUTE 0.34 K/mm3 (0.00-0.02); NRBC Auto 0.8 /100 WBC (0.0-0.2); Platelet Count 520 K/mm3 (150-400); RDW Coefficient Variation 20.9 % (11.7-14.2); Red Blood Cell Count 2.57 M/mm3 (3.80-5.20); White Blood Cell Count 44.15 K/mm3 (4.00-11.30)
[2021-08-02 06:03] LABS: Albumin, Blood 2.2 g/dL (3.4-5.0); Anion Gap 23 mmol/L (6-16); Blood Urea Nitrogen 142 mg/dL (8-24); Bun/Creatinine Ratio 36.1 (12.0-20.0); CO2, Blood 13 mmol/L (21-32); Calcium, Blood 8.7 mg/dL (8.5-10.1); Chloride, Blood 107 mmol/L (98-108); Creatinine, Blood 3.93 mg/dL (0.40-1.00); Glomerular Filtration Rate 11 (60-); Glucose, Blood 245 mg/dL (70-99); Magnesium, Blood 2.8 mg/dL (1.6-2.4); Potassium, Blood 5.3 mmol/L (3.5-5.5); Sodium, Blood 143 mmol/L (136-145)
[2021-08-02 06:11] LABS: BAND PERCENT MAN 10 % (0-8); BASOPHILS PERCENT MAN 0 % (0-2); EOSINOPHILS PERCENT MAN 0 % (0-6); MONOCYTES ABSOLUTE MAN 0.88 K/mm3 (0.16-1.47); MONOCYTES PERCENT MAN 2 % (4-13); NEUTROPHILS ABSOLUTE MAN 43.26 K/mm3 (1.96-9.15); SEG NEUTROPHILS PERCENT MAN 88 % (41-73); TOTAL CELLS COUNTED 100
--- NOTE | 2021-08-02 06:41 | NUR ---
PLAN FOR JAS TODAY IS TO HAVE DIALYSIS, WAS JUST IN TO SEE PATIENT. JAS CONTINUES TO IMPROVE HER BLOOD PRESSURE, WORKING ON TITRATING DOWN THE LEVO, CONTINUES @ 15MCG/MIN. VASOPRESSIN @ 0.4U/MIN. BICARB @ 150ML TO BE STOPPED WHEN DIALYSIS STARTS. MIDAZOLAM DRIP @ 2MG/HR. VENT 16/350/5/35% TOLERATING WELL WITH SATS IN THE HI 90'S. DOESN'T FOLLOW COMMANDS, OPENS EYES NOT TO COMMAND. DOES NOT FOLLOW ANY COMMANDS. NO FURTHER CHANGES.
--- NOTE | 2021-08-02 10:00 | NUR ---
UPDATE: DIALYSIS & PT AGITATION TELEPHONE TECHNICIAN, ARGELIA, @ BEDSIDE & BEGINS HD. BICARB gtt PLACED ON SB PER ORDERS. PT TACHYPNEIC W/ RR 30-38/min, COUGHING AGAINST ETT @ TIMES. VERSED INC TO 4mg/hr. DR PIZARRO @ BEDSIDE FOR AM ROUNDS. NO NEW ORDERS.
[2021-08-02 13:07] LABS: Albumin, Blood 3.1 g/dL (3.4-5.0); Anion Gap 19 mmol/L (6-16); Blood Urea Nitrogen 81 mg/dL (8-24); Bun/Creatinine Ratio 32.8 (12.0-20.0); CO2, Blood 19 mmol/L (21-32); Calcium, Blood 8.8 mg/dL (8.5-10.1); Chloride, Blood 103 mmol/L (98-108); Creatinine, Blood 2.47 mg/dL (0.40-1.00); Glomerular Filtration Rate 19 (60-); Glucose, Blood 232 mg/dL (70-99); Magnesium, Blood 2.3 mg/dL (1.6-2.4); Potassium, Blood 4.3 mmol/L (3.5-5.5); Sodium, Blood 141 mmol/L (136-145)
[2021-08-02 13:09] LABS: Phosphorus, Blood 6.5 mg/dL (2.5-4.9)
--- NOTE | 2021-08-02 13:18 | NUR ---
Spoke by phone to pt's son Moncho after receiving report from bedside RN. Pt did not tolerate dialysis well today, and multiple interventions were needed to stabilize pt's cardiac function. He verbalizes understanding, and requests we change pt's code status to DNR, and very specifically adds he does not want pt's heart restarted if it does stop again. Relayed to Dr. Carmichael via voice message. Moncho is calling pt's sister to find out if they have left home to drive to the hospital yet, and if they haven't, he states he may just advise them to stay home. He has Palliative Care phone number, and will call back shortly.
--- NOTE | 2021-08-02 13:59 | NUR ---
Pt's code status changed to DNR as requested by son Moncho. I relayed to him that pt's condition is rapidly declining, and he states he is on his way to see her. Screener notified, and ICU charge and bedside RN also notified.
--- NOTE | 2021-08-02 14:45 | NUR ---
UPDATE: 1230 - PT OBSERVED W/ MULTIPLE RUNS OF VTACH, UP TO 272bpm. NORI CALLED TO BEDSIDE, CRASH CART OPENED, & PADS PLACED. 150mg IVP AMIODARONE GIVEN, & ORDERS PLACED FOR AMIO gtt. 1300 - AMIO gtt STARTED @ 0.5mg/hr. PT CONTINUES TO HAVE EXTENDED RUNS OF VTACH & NOW MAINTAINING HR 150s-180s. NORI AWARE, ORDERS PLACED FOR LIDOCAINE gtt. PALLIATIVE CARE UPDATING FAMILY, ENCOURAGING THEM TO COME IN. 1400 - PT AGAIN IN VTACH, HR SUSTAINING 180s. NORI @ BEDSIDE, EKG DONE, & ORDERS PLACED FOR DILIAZEM gtt. 1436 - DILTIAZEM gtt STARTED. FAMILY ARRIVES @ BEDSIDE & SALES SUPPORT CONSULTANT & PALLIATIVE CARE CALLED TO DISCUSS PLAN OF CARE W/ FAMILY. DECISION MADE TO MAKE PT COMFORT CARE. NORI AWARE. FAMILY PROVIDED W/ PRIVACY TO PRAY W/ SALES SUPPORT CONSULTANT. WILL INITIATE COMFORT CARE ORDERS SHORTLY.
--- NOTE | 2021-08-02 14:53 | NUR ---
Pt made comfort care by family, specifically by pt's son DarlniRN is giving diltiazem to lower pt's HR for comfort, and comfort care orders placed. They are ready for terminal withdrawal when comfort medications on board.
--- NOTE | 2021-08-02 16:27 | NUR ---
Spiritual Care Referral. Pt. was going to moved to comfort care. Family present desired [facility]. Provided empathetic listening, and was able to develop rapport as I had previously met with Pt. Last Rites and annointing were requested, and administered. Provided some anticiapatory guidance with regard to end of life. Family displayed evidence of catharsis, and verbalized gratitude for spiritual care response.
--- NOTE | 2021-08-02 18:33 | NUR ---
Spiritual Care follow up. Pt. unresponsive with shallow breaths. Family is present. Facilitated a life review established rapport with the son and [id number]. Helped family choose [facility] ([place] for home arrangements, and notified ICU staff. Family displayed evidence of comprehension and reduced stress and verbalized gratitude for assistance and care given.
--- NOTE | 2021-08-02 19:00 | NUR ---
SHIFT SUMMARY: COMFORT CARE CONTINUES. PT MEDICATED W/ PO ROXANOL Q1hr. RR 5/min & LABORED. HR 70s, SINUS. DISTAL PULSES FAINT/THREADY. FAMILY REMAINS @ BEDSIDE, EDUCATED ON THE COMFORT CARE COURSE & THAT THE PT MAY TAKE SEVERAL HRS TO DAYS TO PASS. FAMILY VERBALIZED UNDERSTANDING, APPEARS RECEPTIVE & ACCEPTING. SEE PREVIOUS PHYSICIAN PRIMARY CARE SPORTS MEDICINE NOTES.
--- NOTE | 2021-08-02 21:48 | NUR ---
PT CONTINUES IN BED, BLOOD PRESSURE CONTINUES SBP 30'S-40'S. HEART RATE 70'S. PT BREATHING ABOUT 6 BREATHS PER MINUTES. SOME SHALLOW, SOME DEEP. SON AND DAUGHTER IN LAW IN ROOM AT THE BEDSIDE. PT MEDICATED WITH ATROPINE, MORPHINE, MIDAZOLAM DRIP WAS AT 7ML/HR, DECREASED TO 5ML/HR. WILL CONTINUE TO MONITOR AND MEDICATE PER MAR FOR COMFORT.
--- NOTE | 2021-08-03 00:47 | NUR ---
PT PASSED AT 0045, CALLED BY BERNARD WEAVER RN. FAMILY IN THE ROOM.
[2021-08-03 07:11] LABS: HBSAG SCREEN Negative (Negative); HEP A AB, IGM Negative (Negative); HEP B CORE AB, IGM Negative (Negative); HEP C VIRUS AB <0.1 (0.0-0.9)
== END 2021-08-03 00:45 | DRG 871 ==
LOC: ER 12:36 → MEDS 19:16 → PCU 19:16 → ICUE 19:16 → MEDS 22:00 → PCU 07-30 17:07 → ICUE 08-01 23:38
PROVIDERS: Emergency Medicine; Family Medicine; Hospitalist; Internal Medicine; Internal Medicine Critical Care Medicine; Internal Medicine Nephrology; Physician Assistant; Student in an Organized Health Care Education/Training Program; ADMIT Internal Medicine
PROC: 5A09357 Assistance with Respiratory Ventilation, Less than 24 Consecutive Hours, Continuous Positive Airway Pressure (ICD-10-PCS; 2021-07-08)
PROC: 5A12012 Performance of Cardiac Output, Single, Manual (ICD-10-PCS; 2021-08-01)
PROC: 02HV33Z Insertion of Infusion Device into Superior Vena Cava, Percutaneous Approach (ICD-10-PCS; principal; 2021-08-02)
PROC: B548ZZA Ultrasonography of Superior Vena Cava, Guidance (ICD-10-PCS; 2021-08-02)
PROC: 5A1D70Z Performance of Urinary Filtration, Intermittent, Less than 6 Hours Per Day (ICD-10-PCS; 2021-08-02)
PROC: 3E033XZ Introduction of Vasopressor into Peripheral Vein, Percutaneous Approach (ICD-10-PCS; 2021-08-02)
PROC: 0BH17EZ Insertion of Endotracheal Airway into Trachea, Via Natural or Artificial Opening (ICD-10-PCS; 2021-08-02)
PROC: 5A1935Z Respiratory Ventilation, Less than 24 Consecutive Hours (ICD-10-PCS; 2021-08-02)
DX: A41.59 Other Gram-negative sepsis (principal); R65.21 Severe sepsis with septic shock; N17.0 Acute kidney failure with tubular necrosis; J96.01 Acute respiratory failure with hypoxia; Z66 Do not resuscitate; Z51.5 Encounter for palliative care; I50.31 Acute diastolic (congestive) heart failure; G92.8 Other toxic encephalopathy; E87.2 Acidosis; I13.0 Hypertensive heart and chronic kidney disease with heart failure and stage 1 through stage 4 chronic kidney disease, or unspecified chronic kidney disease; I47.2 Ventricular tachycardia; N39.0 Urinary tract infection, site not specified; D84.821 Immunodeficiency due to drugs; T86.19 Other complication of kidney transplant; Z20.822 Contact with and (suspected) exposure to COVID-19; Z78.1 Physical restraint status; E87.5 Hyperkalemia; B96.6 Bacteroides fragilis [B. fragilis] as the cause of diseases classified elsewhere; E86.0 Dehydration; E87.6 Hypokalemia; B37.9 Candidiasis, unspecified; R00.1 Bradycardia, unspecified; E83.42 Hypomagnesemia; E83.39 Other disorders of phosphorus metabolism; E11.51 Type 2 diabetes mellitus with diabetic peripheral angiopathy without gangrene; K76.89 Other specified diseases of liver; I71.4 Abdominal aortic aneurysm, without rupture; Z28.21 Immunization not carried out because of patient refusal; I08.1 Rheumatic disorders of both mitral and tricuspid valves; D63.1 Anemia in chronic kidney disease; E11.22 Type 2 diabetes mellitus with diabetic chronic kidney disease; R91.8 Other nonspecific abnormal finding of lung field; N18.30 Chronic kidney disease, stage 3 unspecified; I73.9 Peripheral vascular disease, unspecified; R19.7 Diarrhea, unspecified; I25.10 Atherosclerotic heart disease of native coronary artery without angina pectoris; Z95.5 Presence of coronary angioplasty implant and graft; Z98.890 Other specified postprocedural states
CPT/HCPCS: 0097U; 0241U; 31500; 31720; 36415; 36556; 36600; 51701; 51798; 71045; 71250; 74176; 76705; 76776; 80048; 80053; 80061; 80069; 80074; 80180; 80197; 81001; 82330; 82607; 82728; 82746; 82803; 82947; 83036; 83540; 83550; 83605; 83690; 83735; 83880; 84100; 84132; 84145; 84156; 84484; 85014; 85018; 85025; 85027; 86317; 86644; 86645; 87040; 87070; 87076; 87077; 87086; 87185; 87186; 87205; 87493; 87496; 87799; 92526; 92610; 93005; 93010; 93306; 93308; 93970; 93971; 94002; 94003; 94640; 94660; 94760; 94762; 96365; 96367; 96375; 97110; 97140; 97161; 97166; 97530; 97530-CQ; 97535; 99285-25; A9270; C1752; C9113; J0171; J0282; J0295; J0461; J0692; J0881; J1170; J1630; J1644; J1720; J1815; J1940; J2001; J2060; J2250; J2270; J2930; J3475; J7030; J7040; J7050; J7060; J7070; J7120; J7131; J7507; J7512; J7517; P9041; P9046